=== PATIENT | female | born 1945 | race Caucasian/White ===

== ENCOUNTER → 2016-12-05 | Outpatient (CLI) | payer OTHER | LOC: FIMAGING 12:15 | PROVIDERS: ATTEND Internal Medicine | DX: Z12.31 Encounter for screening mammogram for malignant neoplasm of breast (principal) | CPT/HCPCS: G0202 ==

== ENCOUNTER → 2016-12-15 | Outpatient (CLI) | payer OTHER | LOC: FIMAGING 08:53 | PROVIDERS: ATTEND Internal Medicine | DX: R92.8 Other abnormal and inconclusive findings on diagnostic imaging of breast (principal) ==

== ENCOUNTER → 2017-06-21 | Outpatient (CLI) | payer OTHER | LOC: FIMAGING 08:43 | PROVIDERS: ATTEND Internal Medicine | DX: Z12.39 Encounter for other screening for malignant neoplasm of breast (principal); R92.8 Other abnormal and inconclusive findings on diagnostic imaging of breast | CPT/HCPCS: G0206 ==

== ENCOUNTER → 2017-12-06 | Outpatient (CLI) | payer OTHER | LOC: FIMAGING 09:36 | PROVIDERS: ATTEND Internal Medicine | DX: Z12.31 Encounter for screening mammogram for malignant neoplasm of breast (principal) ==

== ENCOUNTER 2018-09-05 12:13 | Observation (INO) | payer OTHER ==
[2018-09-05] MEDS ORDERED: NS 1,000 ML IV ONE (12:19)
[2018-09-05] MEDS ORDERED: DIAZEPAM 5 MG TAB PO ONE (12:19)
[2018-09-05] MEDS ORDERED: diphenhydrAMINE 25 MG CAP PO ONE (12:19)
[2018-09-05] MEDS ORDERED: ASPIRIN EC 325 MG TAB PO ONE ×2 (12:19→12:38)
[2018-09-05] MEDS ORDERED: FAMOTIDINE 20 MG TAB PO ONE (12:19)
[2018-09-05] MEDS ORDERED: FAMOTIDINE 20 MG/NACL 50 ML IV ONE (12:19)
[2018-09-05] MEDS ORDERED: methylPREDNISolone SOD SUCC 125 MG/2 ML VIAL IVP ONE (12:19)
[2018-09-05] MEDS ORDERED: EPINEPHrine 1 MG/10 ML SYR IVP ONE (12:37)
[2018-09-05] MEDS ORDERED: FAMOTIDINE 20 MG/NACL/50 ML BAG IV ONE (12:37)
[2018-09-05] MEDS ORDERED: methylPREDNISolone SOD SUCC 125 MG/2 ML VIAL ONE (12:37)
[2018-09-05 13:02] LABS: PLATELET COUNT 244 10^3/uL (150-400)
[2018-09-05] MEDS ORDERED: IOPAMIDOL (ISOVUE-370) 150 ML BTL IV ONE (13:06)
[2018-09-05] MEDS ORDERED: LIDOCAINE 1% 300 MG/30 ML SDV ONE (13:08)
[2018-09-05 13:10] LABS: INR 1.05 (0.83-1.16); PROTIME(PATIENT) 13.9 SEC (12.0-15.0)
[2018-09-05] MEDS ORDERED: LIDOCAINE 2% 5 ML SDV ONE (13:49)
[2018-09-05] MEDS ORDERED: PROPOFOL/EMULSION 500 MG/50 ML BOTTLE IV ONE ×2 (13:49→14:15)
[2018-09-05] MEDS ORDERED: ROCURONIUM 50 MG/5 ML VIAL ONE (13:49)
--- NOTE | 2018-09-05 14:08 | PDHPUP ---
History & Physical Update H&P update statement: This history and physical update is based on an assessment of the patient which was completed after admission or registration (within 24 hours), but prior to the surgery/procedure. nikia has progressive MR, new severe LAE, severe pulmonary htn and incessant PVC's and NSVT on ETT and on 48 holter. Hx of PCI to LAD in 2016. She has been off on anticoagualtion since last Aug H&P update: H&P reviewed & patient examined, no change in patient's condition since H&P completed
[2018-09-05] MEDS ORDERED: PROPOFOL 200 MG/20 ML VIAL ONE (14:15)
--- NOTE | 2018-09-05 15:03 | PDANEPAE ---
ANE Past Medical History - Cardiovascular History Hx Hypertension: Yes Hx Coronary Artery / Peripheral Vascular Disease: Yes Hx CHF / Valvular Disease: Yes - Pulmonary History Hx COPD: No Hx Asthma/Reactive Airway Disease: No Hx Oxygen in Use at Home: No Hx Sleep Apnea: No - Endocrine History Hx Diabetes: No - Renal History Hx Renal Disorders: No - Liver History Hx Hepatic Disorders: No - Neurological & Psychiatric Hx Hx Neurological and Psychiatric Disorders: No - Chronic Pain History Chronic Pain: No ANE Review of Systems Review of Systems: ANE Patient History - Allergies Allergies/Adverse Reactions: shellfish Allergy (Uncoded 08/29/16 06:00) - Home Medications Home Medications: Carvedilol [Coreg (*)] 25 mg PO BIDMEAL 09/03/18 [Last Taken 09/05/18] Clopidogrel Bisulfate [Plavix (*)] 75 mg PO DAILY 09/03/18 [Last Taken 09/05/18] Lansoprazole [Prevacid] 15 mg PO DAILY 09/03/18 [Last Taken 1 Day Ago ~09/04/18] - Smoking Hx Smoking Status: Never smoked ANE Labs/Vital Signs - Labs Result Diagrams: 09/05/18 12:30 09/05/18 12:30 - Vital Signs Height: 160.02 cm Weight: 64.864 kg ANE Physical Exam - Airway Neck exam: FROM Mallampati Score: Class 1 Mouth exam: normal dental/mouth exam - Pulmonary Pulmonary: no respiratory distress, no rales or rhonchi, clear to auscultation - Cardiovascular Cardiovascular: regular rate and rhythym, systolic murmur, diastolic murmur - ASA Status ASA Status: III
[2018-09-05] MEDS ORDERED: ATROPINE SULFATE 1 MG/10 ML SYR IVP PRN (16:20)
[2018-09-05] MEDS ORDERED: ONDANSETRON 4 MG/2 ML VIAL IVP PRN (16:20)
[2018-09-05] MEDS ORDERED: HYDROCODONE/APAP 5/325 TAB PO PRN (16:20)
[2018-09-05] MEDS ORDERED: NITROGLYCERIN 0.4 MG BTL SL PRN (16:20)
[2018-09-05] MEDS ORDERED: OXYCODONE/APAP 5/325 TAB PO PRN (16:20)
--- NOTE | 2018-09-05 17:01 | CPIP ---
DATE OF PROCEDURE: 09/05/2018 PROCEDURE PERFORMED: Left and right heart catheterization. INDICATION FOR PROCEDURE: Progression of valvular disease on echocardiogram with severe left atrial enlargement, severe pulmonary hypertension and moderate mitral regurgitation, moderate to severe tric uspid regurgitation. She also has a new onset of incessant ventricular ectopy with over 66,000 PVCs on 40 hour Holter monitor and increasing ventricular ectopy and runs of nonsustained ventricular tach ycardia on exercise treadmill stress test in the setting of known coronary artery disease with previo us PCI to the mid-LAD in 2016. PROCEDURE: 1. Right heart catheterization. 2. Left heart catheterization. 3. Left ventriculogram. 4. Right common femoral artery angiography. DESCRIPTION OF PROCEDURE: After informed consent was obtained for left heart catheterization as well as percutaneous coronary intervention, the patient was brought to the cardiac catheterization lab wh ere she was prepped and draped in a sterile fashion. Of note, the patient was sedated with propofol with the assistance of Anesthesia for a BRETT that was performed prior to left and right heart catheter ization. A 6-Setswana sheath was placed in the right common femoral artery using the modified Seldinger techniqu e coupled with the micropuncture technique. A 6-Setswana sheath was ultimately up sized to a 24 cm bra ided sheath in the setting of iliac vessel tortuosity. A JL 3.5 catheter was used to cannulate the l eft main. Due to difficulties cannulating the left main, assistance with cannulation was obtained wi th my colleague, Dr. Pradhan. Once the catheter was placed in left main, images were obtained in mu ltiple projections. A JL 3.5 was exchanged over a guidewire for a Russ right catheter. Russ right catheter was used to take images of the right coronary anatomy in multiple projections. Willi ams right catheter was removed over a guidewire without complications. Angled pigtail catheter was u sed to cross the aortic valve. Left ventriculogram was performed. LVEDP was assessed, aortic valve gradient was assessed. Angled pigtail catheter was removed over a wire without complications. Right heart catheterization was performed prior to left heart catheterization. The [place] cathete r was placed into the pulmonary artery. Wedge pressure was obtained. After wedge pressure was obtai lino, catheter was pulled back into the pulmonary artery. Pulmonary artery arterial site was obtained as well as pulmonary artery tracings were obtained. The catheter was then pulled back into the righ t ventricle. Right ventricular saturation was obtained. RV pressure tracing was obtained. The cath eter was then pulled back into the right atrium, right atrial oxygen saturation was obtained as well as right atrial pressure. Aortic sat was also obtained. Right heart catheterization results: Pulmonary capillary wedge pressure mean of 17. Pulmonary artery pressure 54/19 with a mean of 31, right ventricular pressure 58/1 with a mean of 12. RA pressure me an of 8 mmHg. Cardiac output 5.02 L/minute. Cardiac index 3.03 L/minute per sq m. Coronary angiography findings: Left main demonstrates normal size and caliber, bifurcates into left a nterior descending, left circumflex coronary artery. No evidence of coronary disease in the left marya n. Left anterior descending demonstrates patent stents to the mid proximal to mid LAD just distal to the 2nd diagonal branch. No flow-limiting coronary disease within the LAD or diagonal branches. Circumflex vessel demonstrates normal blood flow. No evidence of coronary disease within the circumf duane vessel. The right coronary artery is a dominant vessel. There is mild 20% stenosis in the distal RCA just pr oximal to the bifurcation of the PDA and PLV branch. HEMODYNAMICS: LVEF 45-50 percent. LVEDP fluctuates depending on PVC beats. LVEDP ranged between 23 and 41 mmHg. Aortic valve gradient: None. CONCLUSIONS: 1. No flow-limiting coronary disease. 2. Patent stent to the LAD. 3. Mildly reduced left ventricular function with LVEF of 45-50 percent with mild global hypokinesis. 4. Elevated LVEDP ranging between 23 and 41, varied in the setting of frequent PVCs. Right heart catheterization findings: Moderate pulmonary hypertension with PA pressure 54/19 and RV p ressure of 58/1 and pulmonary capillary wedge pressure 17. PLAN: 1. No indication for percutaneous coronary intervention or coronary bypass grafting based on the abo ve results. 2. BRETT did not demonstrate any indication for severe valve disease or indication for surgical interv ention on mitral, aortic, or tricuspid valve. Also aortic root measured within normal limits. Recommend consultation with Dr. Sudeep Gibson in the setting of incessant ventricular ectopy with mildly reduced ejection fraction in the setting of no evidence of flow-limiting coronary disease or severe valvular disease. /[id number]/MODL
--- NOTE | 2018-09-05 17:52 | ECHO ---
[email or web address] [address] [address] Main: [phone] Fax: Transesophageal Echocardiography Name: ALEXIS BORREGO MR#: [id number] Study Date: 09/05/2018 Study Time: 02:14 PM Date of : 1945 Age: 72 year(s) Height: ( ) Weight: ( ) BSA: Gender: Female Examination: BRETT Indication: Pre Cath Image Quality: Contrast: Requested by: Kenny Leigh Heart Rate: Rhythm: BP: / Procedure Staff Agricultural Inspector: Sammy Rascon RDCS Reading Physician: Kenny Leigh MD Requesting Provider: BRETT Exam Details Conclusions: Low normal left ventricular systolic function. The ejection fraction is visually estimated to be 50 %. The left atrium is severely dilated. Normal appearing atrial septum. The left atrial appendage is unilobular. No thrombus in left appendage. The right atrium is severely dilated. Mild mitral valve regurgitation is present. No mitral stenosis is present. Mild aortic cusp calcification is noted. Mild aortic valve regurgitation is present. No aortic valve stenosis is present. Moderate tricuspid regurgitation is present. The pulmonary artery pressure is mildly increased. Right ventricular systolic pressure measures 35mmHg. Trivial pulmonic valve regurgitation. No dilatation of the aorta. Measurements: Chambers Valvular Assessment AV/MV Valvular Assessment TV/PV Normal Normal Normal Name Value Range Name Value Range Name Value Range Visual EF: 50 % AV Vmax: 1.69 m/s (1 m/s-1.7 TR Vmax: 2.72 mm/s ( - ) m/s) TR PGmax: 30 mmHg ( - ) AV maxP mmHg ( - ) syst. PAP: 35 mmHg ( - ) Patient: ALEXIS BORREGO Study Date: 09/05/2018 Page 1 of 2 02:14 PM AV meanP mmHg ( - ) MV meanP mmHg ( - ) Additional Measurements: Valvular Assessment AV/MV Valvular Assessment TV/PV Name Value Name Value MV VTI: 16.00 cm CVP (est.): 5 mmHg Findings: Left Ventricle: Low normal left ventricular systolic function. The ejection fraction is visually estimated to be 50 %. No regional wall motion abnormality. Right Ventricle: Normal RV function. Left Atrium: The left atrium is severely dilated. Normal appearing atrial septum. Left Atrial Appendage: The left atrial appendage is unilobular. No thrombus in left appendage. Right Atrium: The right atrium is severely dilated. Mitral Valve: The mitral valve is normal in appearance. Mild mitral valve regurgitation is present. No mitral stenosis is present. Aortic Valve: The aortic valve is tri-leaflet. Mild aortic cusp calcification is noted. Mild aortic valve regurgitation is present. No aortic valve stenosis is present. Tricuspid Valve: The tricuspid valve appears normal. Moderate tricuspid regurgitation is present. The pulmonary artery pressure is mildly increased. Right ventricular systolic pressure measures 35mmHg. Pulmonic Valve: The pulmonic valve is normal in appearance and function. Trivial pulmonic valve regurgitation. Aorta: The aorta is normal. No dilatation of the aorta. Pericardium: No pericardial effusion. l1n (No Signature Object) Patient: ALEXIS BORREGO Study Date: 09/05/2018 Page 2 of 2 02:14 PM [id number]
--- NOTE | 2018-09-06 07:05 | POSTANESTH ---
Post Anesthetic Evaluation Cardiovascular Status: Normal, Stable Respiratory Status: Normal, Stable Level of Consciousness/Mental Status: Can Participate in Eval Pain Control: Adequate, Prn Tx Ordered Nausea/Vomiting Control: Adequate, Prn Tx Ordered Complications Possibly Related to Anesthesia: None Noted
[2018-09-06 07:53] VITALS: BP 120/57
--- NOTE | 2018-09-06 09:41 | CPEKG ---
Test Reason : OPEN Blood Pressure : / mmHG Vent. Rate : 095 BPM Atrial Rate : 074 BPM P-R Int : 163 ms QRS Dur : 099 ms QT Int : 382 ms P-R-T Axes : 029 011 070 degrees QTc Int : 481 ms Sinus rhythm Ventricular tachycardia, unsustained Probable left atrial enlargement Minimal ST depression, anterolateral leads Minimal ST elevation, anterior leads Confirmed by Perry Gill ([id number]) on 09/06/2018 9:41:37 AM Referred By: Confirmed By:Perry Gill
[2018-09-06] MEDS ORDERED: LISINOPRIL 10 MG TAB PO SCH (10:00)
[2018-09-06] MEDS ORDERED: CLOPIDOGREL BISULFATE 75 MG TAB PO SCH (10:00)
[2018-09-06] MEDS ORDERED: CARVEDILOL 25 MG TAB PO SCH (10:00)
[2018-09-06] MEDS ORDERED: ATORVASTATIN CALCIUM 40 MG TAB PO SCH (10:00)
--- NOTE | 2018-09-06 10:03 | ASDISCHSUM ---
Discharge Information Plan Status:Home with No Needs Medically Cleared to Leave:09/05/2018 Discharge Date:09/05/2018 CM D/C Disposition:Home, Routine, Self-Care ADT D/C Disposition:Home, Routine, Self-Care Projected Discharge Date:09/05/2018 Transportation at D/C:Family Discharge Delay Reason: Follow-Up Date:09/05/2018 Discharge Slot: Final Diagnosis: Placement Information Patient Contact Information Contact Name:MANJINDER Relationship: Address:[address] [place] Work Phone: City:[place] Alternate Phone: State/Zip Code:[place] [address] Email: Financial Information Financial Class:Medicare Advantage Plans Primary Plan Desc:[employer] MEDICARE ADV Primary Plan Number:[id number] Secondary Plan Desc: Secondary Plan Number: Assessment Information LACE LACE Length of stay for Answers: Less than 1 day current admission Acuity / Level of Answers: No Care: Did the patient have an inpatient admission? # of Emergency department Answers: 0 visits in the last 6 months Date Signed: 09/06/2018 10:02 AM Electronically Signed By:Eliana Suarez RN Intervention Information
--- NOTE | 2018-09-06 11:11 | GDS ---
ADMITTING DIAGNOSES: 1. Coronary artery disease with history of percutaneous coronary intervention of the left anterior d escending artery in 07/2016. 2. Frequent premature ventricular contractions, with noted runs of nonsustained ventricular tachycar amandeep during stress testing. 3. Hypertension. 4. Hyperlipidemia. 5. Paroxysmal atrial fibrillation. 6. Valvular heart disease (MR, AI, , TR). 7. Moderate pulmonary hypertension. DISCHARGE DIAGNOSIS: 1. Coronary artery disease with previous percutaneous coronary intervention of the left anterior anneliese cending artery. 2. Frequent premature ventricular contractions. 3. Hypertension. 4. Hyperlipidemia. 5. Rkwm-ib-ofctwkeb mitral regurgitation. 6. Mild aortic insufficiency. 7. Mild . 8. Moderate tricuspid regurgitation. 9. Moderate pulmonary hypertension. 10. Paroxysmal atrial fibrillation. PROCEDURES PERFORMED DURING HOSPITALIZATION: 1. Electrocardiogram. 2. Transesophageal echocardiogram. 3. Right and left heart catheterization. BRIEF HISTORY: Please see H and P. Briefly, the patient is a 72-year-old female. She had recently seen Dr. Leigh in office, noting to have frequent palpitations and potentially worsened murmurs. She did undergo stress testing, noting to have frequent PVCs, with noted episodes of couplets, bigeminy, and 4 and 5-beat runs of VT during testing. She had also recently underwent Holter monitoring, notin g over 66,000 in a 48-hour period. Due to this, it was recommended that she come in and undergo a TE E for evaluation of her valvular heart disease and right and left heart catheterization. HOSPITAL COURSE: Patient was admitted through CVC, prepped for procedure, and taken to the cardiac c atheterization lab. There, Dr. Leigh performed transesophageal echocardiogram, in which was noted low normal LV systolic function, with EF of 50%. LA was severely dilated and appeared unilobular. No t hrombus in the left atrial appendage. RA was severely dilated, mild MR, no MS, mild AI, no was pr esent, moderate TR, RVSP of 35 mmHg, trivial NH, no dilation of the aorta. After that, she underwent cardiac catheterization, right and left, with the findings of patent stent into the LAD, no flow-harrell iting disease, mildly reduced LV systolic function of 45% to 50%, with mild global hypokinesis. LVED P ranged between 23 and 41 mmHg, in the setting of frequent PVCs. Right heart catheterization demons trated moderate pulmonary hypertension with PA pressures of 54/19, RV pressure 58/1, and PCWP of 17 m mHg. No apparent complications. Patient was transferred back to the CVC and ultimately to PCU telem etry floor for overnight observation and hydration. Today, she reports mild tenderness at groin site , denies any chest pain or pressure. Continuous cardiac monitoring showing sinus rhythm with frequen t PVCs, no malignant arrhythmias or pauses noted. She reports no shortness of breath. She has been up and walking in the unit without difficulty. PHYSICAL EXAMINATION: GENERAL APPEARANCE: Today, short statured, mildly obese, female. S he is alert and oriented to person, place, time, and situation. Appears to be under no acute distres s. VITAL SIGNS: Current vital signs are blood pressure of 120/57, heart rate 65, sinus rhythm, resp irations 20, saturating 93% on room air, temperature 36.4 degrees Celsius. HEENT: Head is normoceph alic. Lips and tongue are pink and moist, with no signs of cyanosis. Conjunctivae pink. NECK: Tra gail is midline, +2 carotid pulses bilateral. No auscultated bruits, no jugular vein distention. RE SPIRATORY: Lungs are clear to auscultation, no rhonchi, rales or wheezes. No accessory muscle use. No intercostal muscle retraction noted. CARDIAC: Regular rate, regular rhythm, S1, S2, no S3, S4 n oted. Systolic murmur noted, 2/6, along left sternal border. ABDOMEN: Soft, nontender, bowel sound s x4 quadrants. No organomegaly. No palpable masses. SKIN: Black, warm, dry, no cyanosis, no clubb ing, no peripheral edema. VASCULAR: +2 carotids bilateral, +2 radials bilateral, +1 dorsal pedal an d posterior tibial pulses bilateral. Catheter insertion site, right groin site, with no redness, swe lling, drainage, ecchymosis, or hematoma. No auscultated bruit. LABORATORY DATA: Laboratory studies drawn today show a WBC of 11.11, hemoglobin 12.0, hematocrit 37. 2, platelet count of 238. Sodium 136, potassium 3.8, chloride 104, CO2 24, BUN 14, creatinine 0.8, gl ucose 124, calcium 9.4, magnesium 2.1. ProBNP of 6970. On admission, patient noted to have a fastin g lipid panel showing triglycerides 75, total cholesterol 134, LDL 64, HDL of 79. PROCEDURES: Transesophageal echocardiogram as mentioned above. Right and left heart catheterization as mentioned above. Electrocardiogram done on the showing sinus rhythm, with frequent PVCs, no nspecific T-wave abnormalities in multiple leads. DISCHARGE DISPOSITION: Patient will be discharged home in stable condition. She is under activity r estrictions of not lifting more than 10 pounds for the next week and no strenuous activity for the ne xt 2 weeks. DISCHARGE MEDICATIONS: Please see discharge medication reconciliation sheet. Note, patient has been resumed on all home medications, except Pradaxa, which she has been asked to resume tomorrow morning . DISCHARGE INSTRUCTIONS: Post-cardiac catheterization/BRETT discharge instructions went over with the p ronda and her , including activity restrictions, monitoring for signs of infection, bleeding precautions, and medication compliance. Patient has a followup appointment scheduled with Dr. Leigh, September 21, and she has a followup appointment with Dr. Gibson of electrophysiology for a consultation, October 11. At the time of discharge, patient and both verbalized understanding of all instr uctions. They have been told if any problems or concerns come up post discharge, they are to call eir office or return to the hospital. Total time spent on discharge greater than 30 minutes. /[id number]/MODL
== END 2018-09-06 12:00 | disposition home or self-care (01) ==
LOC: FCATH 12:13 → F2W 16:28
PROVIDERS: ADMIT Internal Medicine Cardiovascular Disease; ATTEND Internal Medicine Cardiovascular Disease
DX: I25.10 Atherosclerotic heart disease of native coronary artery without angina pectoris (principal); I10 Essential (primary) hypertension; E78.5 Hyperlipidemia, unspecified; I48.0 Paroxysmal atrial fibrillation; I08.3 Combined rheumatic disorders of mitral, aortic and tricuspid valves; I27.20 Pulmonary hypertension, unspecified; Z95.5 Presence of coronary angioplasty implant and graft
CPT/HCPCS: 93005; 93312; 93460; C1760; G0378; J1200; J1644; J2704; J2930; Q9967

== ENCOUNTER 2018-09-06 22:46 | Inpatient (IN) | payer OTHER ==
--- NOTE | 2018-09-06 23:54 | EDPHY ---
H & P Stated Complaint: R groin/thigh swelling from cath procedure today, Time Seen by Provider: 09/06/18 23:12 HPI/ROS: Chief Complaint: Right groin swelling HPI: 72-year-old woman who was 1 days status post cardiac catheterization by Dr. Leigh. Patient was discharged this morning. Approximately 1 hr ago she noticed rapid dramatic swelling in her right groin catheterization site. She contacted the cardiology office was told to come in for further evaluation. Denies any lightheadedness or fainting. Is complaining of pain in her groin. Is able to ambulate. No chest pain or shortness of breath. She is not on any blood thinning medications the last week. ROS: 10 systems were reviewed and were negative except those elements noted in the HPI. PMH: Coronary artery disease Social History: No smoking, no alcohol, no recreational drug use Family History: non-contributory Physical Exam: Gen: Awake, Alert, No Distress HEENT: Nose: no rhinorrhea Eyes: PERRLA, EOMI Mouth: Moist mucosa Neck: Supple, no JVD Chest: nontender, lungs clear to auscultation Heart: S1, S2 normal, no murmur Abd: Soft, non-tender, no guarding Right inguinal region. Patient has a large hematoma inferior to her catheterization site, approximately 20 x 10 cm. Is tender to touch. There is over ecchymosis. No erythema. Ext: no edema, non-tender Skin: no rash Neuro: CN II-XII intact, Sensation grossly intact, Strength 5/5 in bilateral upper and lower extremities - Personal History Current Tetanus Diphtheria and Acellular Pertussis (TDAP): Yes - Medical/Surgical History Hx Asthma: No Hx Chronic Respiratory Disease: No Hx Diabetes: No Hx Cardiac Disease: Yes Hx Renal Disease: No Hx Cirrhosis: No Hx Alcoholism: No Hx HIV/AIDS: No Hx Splenectomy or Spleen Trauma: No Other PMH: HTN, AFIB, hyperlipidemia, gerd, cardiac stent, c section, appendectomy, ortho hand surg, - Social History Smoking Status: Never smoked Constitutional: Initial Vital Signs Temperature (C) 36.4 C 09/06/18 22:48 Heart Rate 63 09/06/18 22:48 Respiratory Rate 18 09/06/18 22:48 Blood Pressure 179/71 H 09/06/18 22:48 O2 Sat (%) 97 09/06/18 22:48 Allergies/Adverse Reactions: shellfish Allergy (Uncoded 08/29/16 06:00) Home Medications: Medication Instructions Recorded Atorvastatin Calcium [Lipitor 40 40 mg PO DAILY #0 tab 08/04/16 mg (*)] Dabigatran Etexilate Mesyl 150 mg PO BID #60 cap 08/04/16 [Pradaxa 150 MG (*)] Lisinopril [Zestril 10 mg (*)] 10 mg PO DAILY #0 tab 08/04/16 Carvedilol [Coreg (*)] 25 mg PO BIDMEAL 09/03/18 Clopidogrel Bisulfate [Plavix (*)] 75 mg PO DAILY 09/03/18 Lansoprazole [Prevacid] 15 mg PO DAILY 09/03/18 Medical Decision Making - Diagnostics Imaging Results: Imaging Impressions Pseudoaneurysm Repair US 09/06/18 23:26 Impression: Large right common femoral artery pseudoaneurysm and surrounding hematoma. Short, wide neck measuring up to 1.7 cm in diameter makes ultrasound guided thrombin injection high risk for reflux and distal embolization in the right lower extremity. Surgical consultation is recommended. These findings were discussed with Dr. Pola Denis and in person at 12:20 AM on 09/07/2018 ED Course/Re-evaluation: Patient has a large pseudoaneurysm in her right groin. Discussed with Dr. Pace, interventional Radiology. He states that the size of the pseudoaneurysm is contraindication for thrombin injection. I have discussed with Dr. Pradhan, cardiology. He is requesting admission to the hospitalist service. I discussed with the hospitalist. Will admit to her service. They are requesting general surgery consultation given the patient's drop in her hemoglobin and hematocrit. Patient is hemodynamically appropriate. I have discussed with Dr. Hooker. He he will consult on the patient in the ER. - Data Points Laboratory Results: Laboratory Results 09/06/18 23:30 09/06/18 23:30 09/06/18 09/06/18 23:30 23:30 WBC 13.79 10^3/uL H 10^3/uL (3.80-9.50) RBC 3.40 10^6/uL L 10^6/uL (4.18-5.33) Hgb 9.7 g/dL L g/dL (12.6-16.3) Hct 29.2 % L % (38.0-47.0) MCV 85.9 fL fL (81.5-99.8) MCH 28.5 pg pg (27.9-34.1) MCHC 33.2 g/dL g/dL (32.4-36.7) RDW 14.1 % % (11.5-15.2) Plt Count 222 10^3/uL 10^3/uL (150-400) MPV 10.6 fL fL (8.7-11.7) Neut % (Auto) 80.0 % H % (39.3-74.2) Lymph % (Auto) 13.6 % L % (15.0-45.0) [place] % (Auto) 5.7 % % (4.5-13.0) Eos % (Auto) 0.2 % L % (0.6-7.6) Baso % (Auto) 0.2 % L % (0.3-1.7) Nucleat RBC Rel Count 0.0 % % (0.0-0.2) Absolute Neuts (auto) 11.03 10^3/uL H 10^3/uL (1.70-6.50) Absolute Lymphs (auto) 1.87 10^3/uL 10^3/uL (1.00-3.00) Absolute Monos (auto) 0.79 10^3/uL 10^3/uL (0.30-0.80) Absolute Eos (auto) 0.03 10^3/uL 10^3/uL (0.03-0.40) Absolute Basos (auto) 0.03 10^3/uL 10^3/uL (0.02-0.10) Absolute Nucleated RBC 0.00 10^3/uL 10^3/uL (0-0.01) Immature Gran % 0.3 % % (0.0-1.1) Immature Gran # 0.04 10^3/uL 10^3/uL (0.00-0.10) Sodium 130 mEq/L L mEq/L (135-145) Potassium 3.9 mEq/L mEq/L (3.5-5.2) Chloride 100 mEq/L mEq/L (97-110) Carbon Dioxide 21 mEq/l L mEq/l (22-31) Anion Gap 9 mEq/L mEq/L (6-14) BUN 23 mg/dL mg/dL (7-23) Creatinine 0.8 mg/dL mg/dL (0.6-1.0) Estimated GFR > 60 Glucose 129 mg/dL H mg/dL (70-100) Calcium 8.5 mg/dL mg/dL (8.5-10.4) Medications Given: Acetaminophen (Tylenol) 650 mg PO Q4HRS PRN PRN Reason: Pain, Mild/Fever, Can Take PO Stop: 03/06/19 01:31 Last Admin: 09/07/18 06:14 Dose: 650 mg Sodium Chloride (Ns) 1,000 mls @ 50 mls/hr IV CONT PITA Stop: 03/06/19 01:44 Last Admin: 09/07/18 02:09 Dose: 1,000 mls Departure - Departure
[2018-09-07 00:03] LABS: PLATELET COUNT 222 10^3/uL (150-400)
[2018-09-07] MEDS ORDERED: ONDANSETRON DISINTEGRATING 4 MG TAB PO PRN (01:32)
[2018-09-07] MEDS: ACETAMINOPHEN 325 MG TAB PO PRN ×2 (02:09→06:14)
[2018-09-07] MEDS: NS 1,000 ML IV SCH ×2 (02:09→14:13)
--- NOTE | 2018-09-07 02:17 | CPEKG ---
Test Reason : OPEN Blood Pressure : / mmHG Vent. Rate : 090 BPM Atrial Rate : 034 BPM P-R Int : 170 ms QRS Dur : 093 ms QT Int : 359 ms P-R-T Axes : 051 029 157 degrees QTc Int : 440 ms Sinus rhythm Ventricular bigeminy Probable left atrial enlargement Abnormal T, consider ischemia, diffuse leads Confirmed by Pola Denis ([id number]) on 09/07/2018 2:16:49 AM Referred By: Confirmed By:Pola Denis
--- NOTE | 2018-09-07 03:20 | GHP ---
DATE OF ADMISSION: 09/07/2018 PRIMARY NECKTIES PAINTER: Kenny Leigh MD. SOURCE: Patient provides history, appears reliable. EMR was reviewed and case discussed with ED provider, cardiology and surgical services. CHIEF COMPLAINT: Right groin pain and swelling, status post cath. HISTORY OF PRESENT ILLNESS: This is a very pleasant 72-year-old female with past medical history significant for coronary artery disease status post stenting to LAD in 2016, systolic CHF, severe mitral regurgitation, severe pulmonary hypertension, biatrial enlargement, severe paroxysmal atrial fibrillation, history of recurrent PVCs, NSVT, GERD, HTN, HLD, who underwent left and right heart catheterization on 09/05/2018 for progressive valvular disease and severe left atrial enlargement, pulmonary hypertension, moderate MR and moderate to severe tricuspid regurgitation. Patient has also been experiencing increasing episodes of PVCs noted in records of 66,000 PVCs on a 48 -hour Holter monitor. Findings did not identify any flow-limiting coronary disease with a patent stent in the LAD, mildly reduced LVEF of 45% and 50% with mild global hypokinesis and findings of moderate pulmonary hypertension. The patient's postoperative course was unremarkable. She was discharged in the morning on 09/06/2018. One hour before presenting to the emergency department, she noted increasing swelling and pain in her right groin. Patient denies any numbness or tingling or radicular symptoms going down into her leg. She denies any chest pain, palpitations, shortness of breath or lightheadedness. The patient called the cardiology office and was advised to go to the emergency department for further evaluation. The patient reports that she continues to have some discomfort in her right groin. REVIEW OF SYSTEMS: 10 systems reviewed and negative except as noted above. ALLERGIES: Shellfish and codeine. Patient reports she tolerates other narcotics. HOME MEDICATIONS: As per EMR, lisinopril 10 mg p.o. daily, Prevacid 15 mg p.o. daily, Pradaxa 150 mg p.o. b.i.d., Plavix 75 mg p.o. daily, Coreg 25 mg p.o. b.i.d. with meals, atorvastatin 40 mg p.o. daily. PAST MEDICAL HISTORY: Significant for: 1. Paroxysmal atrial fibrillation on chronic anticoagulation with Pradaxa. The patient had this medication held prior to her procedure, has not taken any dosing this evening. 2. Mild systolic CHF with an estimated EF of 45% to 50% with mild global hypokinesis, valvular heart disease, severe MR, severe pulmonary hypertension, severe biatrial enlargement and a history of NSVT and recorded 66,000 episodes of PVCs on 48 hours of Holter, bigeminy, trigeminy pattern. 3. GERD. 4. HTN. 5. HLD. PAST SURGICAL HISTORY: Significant for cardiac cath 2016, stenting to LAD, repeated catheterization 08/06/2018, as noted per HPI, , appendectomy, hand surgery. FAMILY HISTORY: Significant for father with CAD, CVA, emphysema. Mother, hypertension, CHF. Brother with mitral valve disease, [place], CAD. Sister, history of CVA and requirement for permanent pacemaker. Another sister with history of cancer. SOCIAL HISTORY: Patient is , lives with her , Perry. She does not smoke, drink, or utilize any drugs. CODE STATUS: Full. PHYSICAL EXAMINATION: VITAL SIGNS: Upon arrival to the emergency department, blood pressure 179/71, heart rate 63, respiratory rate 18, O2 saturation 97% on room air, temperature 36.4. Current vitals available: Blood pressure 149/69, heart rate 36 with noted bigeminy, respiratory rate 14, O2 saturation 96% on room air. GENERAL: No acute distress. Very pleasant, elderly female without is lying quietly in bed. at bedside. HEAD: Normocephalic atraumatic. EYES: Extraocular muscles grossly intact. Pupils equal, round, slightly decreased reactivity to light bilaterally, but symmetric. No scleral icterus, conjunctival injection. ENT: Mucous membranes appear moist. No oropharyngeal erythema or exudates noted. NECK: Supple. Trachea midline. CV: Bradycardic with occasional irregular beat. Slightly distant heart sounds. A 3/6 systolic murmur. No chest wall tenderness to palpation. RESPIRATORY: Unlabored breathing. Lungs are clear to auscultation bilaterally. No wheezes, rales, rhonchi. EXTREMITIES: No cyanosis, clubbing, edema appreciated. 2+ pedal pulses present and symmetric. ABDOMEN: Positive bowel sounds. Soft, nontender to palpation. No rebound, guarding, or masses appreciated. : No suprapubic tenderness to palpation. No Lopez catheter in place. Patient's right groin with large hematoma extending superiorly and inferiorly down the right leg. Patient with tenderness to palpation in all these areas. There is no active bleeding from the wound site. No erythema or induration. NEURO: Grossly nonfocal. Exam limited due to patient being on bedrest with over the groin site. She is able to move all her distal extremities. PSYCH: Thought process, content and questions are all appropriate. Patient is pleasant and cooperative. LABORATORY STUDIES: WBC is 13.79, H and H are 9.7 and 29.2, platelet count is 222, neutrophil percent 80%, MCV 85.9. Patient's discharging H and H earlier in the morning were 12.0 and 37.2. Sodium is 130, potassium 3.9, chloride is 100, CO2 is 21, anion gap 9, BUN is 23 , creatinine 0.8, GFR greater than 60, glucose is 129, calcium 8.5. EKG reviewed by me shows sinus bradycardia with bigeminy, LAE. No acute ST elevations or depressions. QTc 440. Pseudoaneurysm ultrasound showing large right common femoral artery pseudoaneurysm and surrounding hematoma. Short wide neck measuring 1.7 cm in diameter. ASSESSMENT AND PLAN: A pleasant 72-year-old female postop day #2 status post right and left heart catheterization who now presents with sudden onset of right groin pain and swelling. 1. Pseudoaneurysm measuring 1.7 cm. Case was discussed with Radiology, noting that this would be a high risk procedure for ultrasound guided thrombin injection with recommendations to discuss with Surgery who evaluated the patient in the emergency department. Will further discuss for vascular intervention tomorrow. Patient will be made n.p.o. 2. Acute blood loss anemia in setting of hematoma, pseudoaneurysm. Will monitor H and H. Patient's vital signs at this time are acceptable. Type and screen have been ordered. 3. Right groin pain. At this time, patient reports that she is fairly comfortable. She is amenable to some Tylenol. Would like to avoid narcotics as possible, but has been able to tolerate hydrocodone in the past. She does report she is intolerant of codeine. 4. Hyponatremia, likely in setting of hypovolemia with acute bleed. IV fluids for some gentle hydration at slow rate given patient's history of valvular heart disease and mild CHF. 5. Leukocytosis likely related to patient's acute blood loss and acute illness. She is afebrile. Denies any fevers or chills. No evidence of surrounding cellulitis. Will plan to repeat CBC in the morning. 6. Hyperglycemia, mildly elevated, nonfasting lab. No history of diabetes. Continue monitor. 7. Chronic medical issues. 8. Paroxysmal atrial fibrillation. Patient currently in sinus rhythm with bigeminy. She is on Coreg, currently bradycardic. Ventricular rate in the 40s to 50s. Patient is n.p.o. preoperatively. 9. Mild systolic congestive heart failure, ejection fraction estimated 45% to 50% on recent catheterization. Patient does not appear decompensated. Gentle IV fluid hydration as noted above. Monitoring closely. 10. Valvular heart disease without decompensation. Fluids as noted above. 11. Benign essential hypertension. Blood pressure is acceptable at this time. 12. Hyperlipidemia. Resume statins when diet is advanced. 13. Gastroesophageal reflux disease, currently asymptomatic. Resume her PPI when stable. 14. Chronic anticoagulation. Patient has been holding off on her Pradaxa preoperatively. Continue to hold, anticipating surgical intervention. 15. Fluid, electrolyte, nutrition. IV fluids normal saline as noted above. Electrolyte monitoring replacement if needed. The patient is n.p.o. status. 16. Prophylaxis. SCDs. Holding anticoagulation as noted above. 17. COR status: Full. 18. Disposition: Patient admitted to inpatient status on PCU floor for close cardiac monitoring pending surgical evaluation for repair. /[id number]/MODL MTDD
[2018-09-07 06:25] LABS: PLATELET COUNT 195 10^3/uL (150-400)
--- NOTE | 2018-09-07 06:45 | GCON ---
DATE OF CONSULTATION: 09/07/2018 CHIEF COMPLAINT: Right groin pain. HISTORY OF PRESENT ILLNESS: This is a 72-year-old female who underwent cardiac cath on September 05. Cath was uneventful. She was subsequently discharged home after a 1 night hospital stay. She prese nted to the emergency department earlier today complaining of increased right growing swelling and pa in. Other than that, she has no cardiac complaints. Denies fevers or chills. States that her leg i s still warm and she is able to walk. Per her report, the hematoma has been stable since its 1st amisha earance, but there is some tenderness there. PAST MEDICAL HISTORY: Paroxysmal AFib on Pradaxa, mild systolic congestive heart failure, GERD, hype rtension, and hyperlipidemia. PAST SURGICAL HISTORY: She has had multiple cardiac caths. She does have a stent from 2016. No new stents were performed this most recent cath. She has had a , appendectomy and hand surgery . FAMILY HISTORY: Significant for coronary artery disease. SOCIAL HISTORY: She is . Her is at bedside. She denies any illicit drug use. CURRENT MEDICATIONS: Reviewed. ALLERGIES: Shellfish. PHYSICAL EXAMINATION: VITAL SIGNS: Temperature is 37, blood pressure is 135/94, heart rate 65 and s he is 94% on room air. CONSTITUTIONAL: She is comfortable, in no acute distress. EYES: Her pupils are equal, round, and reactive to light and accommodation. She has anicteric sclerae. Her extraocu lar movements are intact. EARS, NOSE, MOUTH, THROAT: She has moist mucous membranes. Her hearing i s normal. She has normal dentition. CARDIOVASCULAR: She is currently in a regular rhythm without a ny murmurs. RESPIRATORY: She has no respiratory distress, rales or rhonchi. She is otherwise clear to auscultation. GI: Her abdomen is soft, nondistended, nontender. Her right groin has some ecchy anil which is tender. It is nonpulsatile. Stick site is clean. MUSCULOSKELETAL: Again, full stre ngth in the bilateral lower extremities. Distal DP and PT are both palpable bilaterally. NEUROLOGIC : She is alert and oriented x3. Her cranial nerves 2-12 are intact. She has no weakness, no numbne ss. PSYCH: She is interacting appropriately. She is not anxious or encephalopathic. LYMPH/HEME/IM MUNOLOGIC: She has no cervical, groin or supraclavicular lymphadenopathy. LABS: Leukocytosis to 13,000 with a left shift. H and H 9.7 and 29.2, platelets 222. Chemistry is remarkable for a low sodium at 130, a low CO2 at 21 and an elevated glucose at 129. IMAGING: Includes an ultrasound of the right groin, which shows a pseudoaneurysm with a short fat ne ck. ASSESSMENT/PLAN: 72-year-old female with right groin pseudoaneurysm of the common femoral artery, st atus post cardiac cath. She is currently hemodynamically stable. Hematoma is not rapidly expanding or pulsatile and the distal neurovascular exam on her right lower extremity is stable. She did have consultation from IR. They felt given the fact that her neck was short and fat that thi s precluded thrombin injection. Given the size of the pseudoaneurysm itself, she will likely need op en surgical repair. We will discuss planning of this in the a.m. /[id number]/MODL
[2018-09-07] MEDS ORDERED: ceFAZolin 2 GM/DEXTROSE 100 ML IV ONE (07:56)
--- NOTE | 2018-09-07 09:13 | POSTANESTH ---
Post Anesthetic Evaluation Cardiovascular Status: Normal, Stable Respiratory Status: Normal, Stable Level of Consciousness/Mental Status: Can Participate in Eval, Mildly Sleepy, Arousable Pain Control: Adequate, Prn Tx Ordered Nausea/Vomiting Control: Adequate, Prn Tx Ordered Complications Possibly Related to Anesthesia: None Noted
--- NOTE | 2018-09-07 09:15 | PDANEPAE ---
ANE History of Present Illness 72 yo female with R groin pseudoaneurysm after heart cath two days ago. ANE Past Medical History - Cardiovascular History Hx Hypertension: Yes Hx Arrhythmias: Yes Hx Chest Pain: No Hx Coronary Artery / Peripheral Vascular Disease: Yes Hx CHF / Valvular Disease: Yes Hx Palpitations: No Cardiovascular History Comment: mild global hypokinesis (EF 45%), mod pulm HTN, mild MR, mod TR. CAD s/p stent, h/o PAF - in bigemini this admission - Pulmonary History Hx COPD: No Hx Asthma/Reactive Airway Disease: No Hx Recent Upper Respiratory Infection: No Hx Oxygen in Use at Home: No Hx Sleep Apnea: No - Endocrine History Hx Diabetes: No Hypothyroid: No Hyperthyroid: No Obesity: no - Renal History Hx Renal Disorders: No - Liver History Hx Hepatic Disorders: No - Neurological & Psychiatric Hx Hx Neurological and Psychiatric Disorders: No - GI History GERD: moderate Hx Gastrointestinal Disorders: Yes - Chronic Pain History Chronic Pain: No ANE Review of Systems Review of Systems: - Systems Constitutional: Reports: no symptoms Muscolosketal: Reports: other (R groin swelling and pain from hematoma) ANE Patient History - Allergies Allergies/Adverse Reactions: shellfish Allergy (Uncoded 08/29/16 06:00) - Home Medications Home Medications: Carvedilol [Coreg (*)] 25 mg PO BIDMEAL 09/03/18 [Last Taken 09/05/18] Clopidogrel Bisulfate [Plavix (*)] 75 mg PO DAILY 09/03/18 [Last Taken 09/05/18] Lansoprazole [Prevacid] 15 mg PO DAILY 09/03/18 [Last Taken 1 Day Ago ~09/04/18] - NPO status NPO Since - Liquids (Date): 09/07/18 NPO Since - Liquids (Time): 05:00 NPO Since - Solids (Date): 09/06/18 NPO Since - Solids (Time): 22:00 - Anes Hx Anes Hx: no prior problems - Smoking Hx Smoking Status: Never smoked - Family Anes Hx Family Anes Hx: neg - N/A ANE Labs/Vital Signs - Labs Result Diagrams: 09/07/18 06:10 09/07/18 06:10 - Vital Signs Blood Pressure: 108/66 Heart Rate: 69 Respiratory Rate: 20 O2 Sat (%): 97 Height: 160.02 cm Weight: 64 kg ANE Physical Exam - Airway Neck exam: FROM, short neck (short TMD with prominent upper teeth) Mallampati Score: Class 2 Mouth exam: normal dental/mouth exam - Pulmonary Pulmonary: clear to auscultation - Cardiovascular Cardiovascular: systolic murmur, other (fixed split S2) - ASA Status ASA Status: III ANE Anesthesia Plan Anesthesia Plan: general endotracheal anesthesia Lines/Monitors: arterial line, additional IV
[2018-09-07] MEDS ORDERED: LR 1,000 ML IV ONE (09:27)
[2018-09-07] MEDS ORDERED: PROTAMINE SULFATE 50 MG/5 ML VIAL IVP ONE (09:41)
[2018-09-07] MEDS ORDERED: THROMBIN (BOVINE) 5,000 UNIT VIAL TP ONE (09:41)
[2018-09-07] MEDS ORDERED: THROMBIN (BOVINE) 20,000 UNIT SPRAY TP ONE (09:42)
[2018-09-07] MEDS ORDERED: BUPIVACAINE 0.5% 30 ML SDV ONE (09:42)
[2018-09-07] MEDS ORDERED: MIDAZOLAM 2 MG/2 ML VIAL IVP ONE (09:42)
[2018-09-07] MEDS: ONDANSETRON 4 MG/2 ML VIAL IVP PRN (09:42)
[2018-09-07] MEDS ORDERED: ROCURONIUM 50 MG/5 ML VIAL ONE (09:51)
[2018-09-07] MEDS ORDERED: fentaNYL 100 MCG/2 ML INJ ONE ×2 (09:51→12:16)
[2018-09-07] MEDS ORDERED: ROCURONIUM 100 MG/10 ML VIAL ONE (09:51)
[2018-09-07] MEDS ORDERED: PROPOFOL 200 MG/20 ML VIAL ONE (09:51)
--- NOTE | 2018-09-07 10:00 | SOAPPROG ---
SOGYPSY Progress Note Assessment/Plan: Assessment: 72-YEAR-OLD FEMALE WITH A HEART RECENT HEART CATHETERIZATION FOR RUNS OF PVCS AND V-TACH. HEART CATH WAS UNREVEALING BUT SHE HAS NOW DEVELOPED A RIGHT GROIN PSEUDOANEURYSM WHICH IS EXPANDING AND NOT A MINIMAL TO IR INJECTION. RISKS AND OPTIONS FULLY DISCUSSED CHEST CLEAR COR REGULAR RHYTHM, VITAL SIGNS STABLE ABDOMEN SOFT NONTENDER EXTREMITIES FULL PULSES PULSATILE HEMATOMA IN THE RIGHT GROIN Plan: OR CORRECTION OF PSEUDOANEURYSM RUPERTO 09/07/18 09:58 Objective: Vital Signs Temp Pulse Resp BP Pulse Ox 36.9 C 69 20 108/66 97 09/07/18 09:23 09/07/18 09:41 09/07/18 09:41 09/07/18 09:41 09/07/18 09:41 Laboratory Results 09/07/18 06:10 09/07/18 06:10 09/06/18 09/07/18 09/08/18 05:59 05:59 05:59 Intake Total 1000 Balance 1000 ICD10 Worksheet Patient Problems: Problems Problem Status Onset 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 - ICD10 Problem Qualifiers (1) Femoral artery pseudoaneurysm complicating cardiac catheterization
[2018-09-07] MEDS ORDERED: HEPARIN 10,000 UNIT/10 ML MDV (1,000 UNIT/ML) ONE (10:01)
[2018-09-07] MEDS ORDERED: NEOSTIGMINE METHYLSULFATE 5 MG/5 ML SYR ONE (11:29)
[2018-09-07] MEDS ORDERED: GLYCOPYRROLATE 0.2 MG/1 ML VIAL ONE ×2 (11:29→11:30)
[2018-09-07] MEDS ORDERED: ONDANSETRON 4 MG/2 ML VIAL ONE (11:31)
[2018-09-07] MEDS ORDERED: LR 500 ML IV PRN ×2 (11:33→12:38)
[2018-09-07] MEDS ORDERED: NALOXONE HCL 0.4 MG/ML INJ IVP PRN ×2 (11:33→12:38)
[2018-09-07] MEDS ORDERED: HYDROCODONE/APAP 5/325 TAB PO PRN (11:33)
[2018-09-07] MEDS ORDERED: ALBUTEROL 3 ML DEYVIAL IH PRN ×2 (11:33→12:38)
[2018-09-07] MEDS ORDERED: PROMETHAZINE HCL 25 MG/ML INJ IVP PRN ×3 (11:33→14:55)
[2018-09-07] MEDS ORDERED: HYDROmorphONE/DILAUDID 1 MG/ML INJ IVP PRN ×2 (11:49→16:11)
[2018-09-07] MEDS ORDERED: HYDROmorphONE/DILAUDID 2 MG TAB PO PRN (11:49)
--- NOTE | 2018-09-07 11:57 | POSTOPPROG ---
Post Op Note Date of Operation: 09/07/18 Surgeon: Tello Klein Education And Development Manager: arcelia Hager Anesthesiologist: Jania Anesthesia: GET(General Endotracheal) Pre-op Diagnosis: psuedoaneurysm, bleeding s/p heart cath Post-op Diagnosis: same Indication: bleeding Procedure: open repair of femoral artery Inf/Abcess present in the surg proc area at time of surgery?: No Depth: Deep Incisional (Fascial) EBL: 50-100
[2018-09-07] MEDS: fentaNYL 100 MCG/2 ML INJ IVP PRN ×2 (12:17→12:29)
[2018-09-07] MEDS ORDERED: HYDROmorphONE/DILAUDID 2 MG/ML INJ ONE (12:26)
[2018-09-07] MEDS ORDERED: fentaNYL 100 MCG/2 ML INJ IVP PRN (12:38)
[2018-09-07] MEDS ORDERED: oxyCODONE IR 5 MG TAB PO PRN (12:38)
[2018-09-07] MEDS ORDERED: ENALAPRILAT DIHYDRATE 1.25 MG/ML VIAL IVP PRN (12:38)
[2018-09-07] MEDS ORDERED: HYDROmorphONE/DILAUDID 2 MG/ML INJ IVP ONE (13:00)
--- NOTE | 2018-09-07 14:04 | PDMN ---
Medical Necessity Medical necessity: Pt meets inpt criteria per MD order and Cardiovascular surgery or procedure GRG, Direct repair of aneurysm, pseudoaneurysm, commom femoral artery, Medicare inpt only list. 72 y/o, POD#2 s/p R and L heart cath presenting w/R groin pain and swelling, admitted w/1.7 cm pseudoaneurysm and acute blood loss anemia in setting of hematoma and pseudoaneurysm, surg consult - pt underwent open repair of femoral artery. Also, of note hyponatremia (Na 127 today), H&H (8.8, 26.8 today).
--- NOTE | 2018-09-07 15:29 | PDCARPN ---
Cardiology Progress Note Chief Complaint: Right groin pain, evidence Assessment/Plan: Assessment: -pseudoaneurysm repair -incessant PVCs -LVEF 45-50% -paroxysmal atrial fibrillation -coronary disease with history of PCI to the LAD. No flow-limiting coronary disease on left heart catheterization 09/05/2018 -moderate pulmonary hypertension -moderate mitral regurgitation. -mild aortic stenosis Plan: -will continue to follow along with her care -will restart Plavix and Pradaxa 1 bleeding risk stable from surgical perspective. Patient is scheduled to be seen by Dr. Gibson for evaluation of incessant ventricular ectopy on 10/11/2018 Patient is scheduled to follow up with me on Monday09/21/2018 09/07/18 15:29 Subjective: Jerri is a pleasant 72-year-old female who underwent transesophageal echocardiogram followed by left and right heart catheterization on Monday02/28/2018 in the setting of echocardiogram demonstrating moderate to severe mitral regurgitation with left atrial enlargement and increasing pulmonary hypertension. She also has a known history of coronary disease with previous PCI to the LAD and history of paroxysmal atrial fibrillation. She had undergone an exercise treadmill stress test to assess for possible symptomatic mitral valve disease. Stress test demonstrated incessant PVCs with increasing ventricular ectopy with runs of bigeminy, trigeminy nonsustained ventricular tachycardia which ultimately terminated the study. This led to plan for left and right heart catheterization coupled with BRETT. T demonstrated moderate mitral regurgitation, moderate pulmonary hypertension, moderate aortic insufficiency. Valvular disease was not significant to require surgery. Left heart catheterization demonstrated patent stent to the LAD and no significant flow-limiting coronary disease right heart catheterization demonstrated moderate pulmonary hypertension. Left heart catheterization performed performed through right common femoral artery. There is tortuosity iliac vessel. Sheath was upsized to a 6 Hungarian 24 cm braided sheath. Right common femoral artery angiography postprocedure demonstrated no evidence of trauma. She is discharged home the following morning without complication and without complaint. She was not scheduled to restart Pradaxa until today. She presented last evening with increasing right groin pain and hematoma formation. She is found have pseudoaneurysm and underwent surgical repair with Dr. JUDY Klein earlier today. Reviewed/Discussed With: family, multidisciplinary team Objective: Vital Signs (8 Hrs) Temp Pulse Resp BP Pulse Ox 09/07/18 13:01 0 L 151/65 H 97 09/07/18 12:47 2 L 149/100 H 96 09/07/18 12:41 36.6 C 8 L 144/75 H 97 09/07/18 12:37 8 L 142/90 H 97 09/07/18 12:32 15 169/86 H 96 09/07/18 12:26 7 L 152/97 H 09/07/18 12:21 8 L 153/72 H 09/07/18 12:16 11 L 161/66 H 09/07/18 12:12 0 L 161/70 H 09/07/18 12:07 12 158/67 H 09/07/18 12:01 6 L 146/70 H 98 09/07/18 11:56 16 135/76 H 98 09/07/18 11:51 5 L 120/52 L 99 09/07/18 11:50 36.6 C 3 L 121/54 H 99 09/07/18 11:48 36.6 C 98 09/07/18 09:41 69 20 108/66 97 09/07/18 09:23 36.9 C 69 18 109/65 09/07/18 07:53 60 16 108/66 97 09/07/18 07:51 69 20 108/66 97 Intake/Output (24 Hrs) 09/06/18 09/07/18 09/08/18 05:59 05:59 05:59 Intake Total 1660 Output Total 50 Balance 1610 Intake: Oral (ml) 10 IV Intake (ml) 650 IV Infused (ml) 1000 Output: Estimated Blood Loss (ml) 50 Other: Weight 64 kg Number of Voids 2 Result Diagrams: 09/07/18 06:10 09/07/18 06:10 - Physical Exam Constitutional: other (Patient asleep.) ICD10 Worksheet Patient Problems: Problems Problem Status Onset 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
--- NOTE | 2018-09-07 16:31 | HOSPPROG ---
Hospitalist Progress Note Assessment/Plan: #Pseudoaneurysm: s/p repair by Dr. Klein -schedule APAP, PRN low-dose oxycodone #Ventricular ectopy: Dr. Gibson to eval September. Ensure lytes at goal #PAF: Coreg. Restart AC when ok by surgery #Normocytic anemia: repeat in morning #CAD: prior PAD PCI. No flow-limiting CAD on cath #Moderate pulm HTN #Mild : FU outpatient Cards #Mild toxic encephalopathy: due to antiemetics #Diet: regular #DVT ppx: SCD #Disp: cont inpatient admission for post-surgical care, telemetry Subjective: somnolent after anesthesia, antiemetics Objective: Vital Signs Temp Pulse Resp BP Pulse Ox 36.8 C 66 16 157/83 H 97 09/07/18 13:30 09/07/18 15:00 09/07/18 15:00 09/07/18 15:00 09/07/18 13:01 Laboratory Results 09/07/18 06:10 09/07/18 06:10 09/06/18 09/07/18 09/08/18 05:59 05:59 05:59 Intake Total 1660 Output Total 50 Balance 1610 - Time Spent With Patient Time Spent with Patient: greater than 35 minutes Time Spent with Patient: Greater than 35 minutes spent on this patients care, greater than 50% of time spent counseling, educating, and coordinating care regarding the above mentioned plan. - Physical Exam Constitutional: other (somnolent) Eyes: PERRL Cardiovascular: regular rate and rhythym, other (PVC) Respiratory: no respiratory distress Gastrointestinal: normoactive bowel sounds Musculoskeletal: other (right groin surgical site dressed, CDI) Neurologic: other (not participating in exam due to somnolence from meds) Psychiatric: encephalopathic (2/2 meds) ICD10 Worksheet Patient Problems: Problems Problem Status Onset 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
--- NOTE | 2018-09-07 16:40 | ASMTCMCOM ---
CM Note CM Note Notes: CM reviewed pt's chart for d/c planning. Pt is postop day #2 status post right and left heart catheterization who now presents wit sudden onset of right groin pain and swelling. Pt is retired and lives with her , bell, #[phone]. There are no orders yet for OT/PT evals. CM will follow. D/C plan: TBD Date Signed: 09/07/2018 04:40 PM Electronically Signed By:oCllette Horowitz
[2018-09-07] MEDS: CARVEDILOL 25 MG TAB PO SCH (16:58)
[2018-09-07] MEDS: PANTOPRAZOLE SODIUM 40 MG TAB PO SCH (16:58)
--- NOTE | 2018-09-07 19:17 | SOAPPROG ---
SOGYPSY Progress Note Assessment/Plan: Assessment: 72-YEAR-OLD FEMALE WITH A HEART RECENT HEART CATHETERIZATION FOR RUNS OF PVCS AND V-TACH. HEART CATH WAS UNREVEALING BUT SHE HAS NOW DEVELOPED A RIGHT GROIN PSEUDOANEURYSM WHICH IS EXPANDING AND NOT A MINIMAL TO IR INJECTION. RISKS AND OPTIONS FULLY DISCUSSED CHEST CLEAR COR REGULAR RHYTHM, VITAL SIGNS STABLE ABDOMEN SOFT NONTENDER EXTREMITIES FULL PULSES PULSATILE HEMATOMA IN THE RIGHT GROIN Plan: OR CORRECTION OF PSEUDOANEURYSM RUPERTO 09/07/18 09:58 09/07/18 19:17 good pulses/ wound ok/ alert/ vs stable/ hct 34 Objective: Vital Signs Temp Pulse Resp BP Pulse Ox 36.8 C 60 16 122/56 H 97 09/07/18 13:30 09/07/18 16:30 09/07/18 15:00 09/07/18 16:30 09/07/18 13:01 Laboratory Results 09/07/18 06:10 09/07/18 17:48 09/06/18 09/07/18 09/08/18 05:59 05:59 05:59 Intake Total 2109 Output Total 50 Balance 2059 ICD10 Worksheet Patient Problems: Problems Problem Status Onset 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 - ICD10 Problem Qualifiers (1) Femoral artery pseudoaneurysm complicating cardiac catheterization
[2018-09-08] MEDS: ACETAMINOPHEN 325 MG TAB PO SCH ×3 (04:38→15:15)
[2018-09-08] MEDS: PANTOPRAZOLE SODIUM 40 MG TAB PO SCH (08:24)
[2018-09-08] MEDS: CARVEDILOL 25 MG TAB PO SCH ×2 (08:24→17:34)
[2018-09-08] MEDS: ATORVASTATIN CALCIUM 40 MG TAB PO SCH (08:24)
--- NOTE | 2018-09-08 08:41 | HOSPPROG ---
Hospitalist Progress Note Assessment/Plan: #Pseudoaneurysm: s/p repair POD#1 -schedule APAP, PRN low-dose oxycodone #Ventricular ectopy: Dr. Gibson to eval September. Ensure lytes at goal #PAF: Coreg. Restart AC when ok by surgery #HTN: hold JORGE-I with soft BP #Normocytic anemia: drop overnight from hematoma. Monitor closely #CAD: prior PAD PCI. No flow-limiting CAD on cath. #Moderate pulm HTN #Mild : FU outpatient Cards #Mild toxic encephalopathy: due to antiemetics #Deconditioning: PT #Diet: regular #DVT ppx: SCD #Disp: cont inpatient admission for telemetry, serial H/H and PT. Subjective: pain at groin site with activity, 05/21 Objective: Vital Signs Temp Pulse Resp BP Pulse Ox 37.1 C 64 14 104/40 L 94 09/08/18 07:24 09/08/18 07:24 09/08/18 07:24 09/08/18 07:24 09/08/18 07:24 Laboratory Results 09/08/18 04:36 09/08/18 04:36 09/07/18 09/08/18 09/09/18 05:59 05:59 05:59 Intake Total 2410 Output Total 50 Balance 2360 - Time Spent With Patient Time Spent with Patient: greater than 35 minutes Time Spent with Patient: Greater than 35 minutes spent on this patients care, greater than 50% of time spent counseling, educating, and coordinating care regarding the above mentioned plan. - Physical Exam Constitutional: no apparent distress Eyes: PERRL Ears, Nose, Mouth, Throat: moist mucous membranes Cardiovascular: regular rate and rhythym, No edema Respiratory: no respiratory distress Gastrointestinal: normoactive bowel sounds Musculoskeletal: other (right groin incision site with surrounding hematoma, soft. Mild oozing) Neurologic: AAOx3, CN II-XII Intact Psychiatric: interacting appropriately ICD10 Worksheet Patient Problems: Problems Problem Status Onset 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
[2018-09-08] MEDS ORDERED: LISINOPRIL 10 MG TAB PO SCH (09:00)
--- NOTE | 2018-09-08 12:13 | PDCARPN ---
Cardiology Progress Note Assessment/Plan: Assessment/plan: 72-year-old female with coronary disease status post LAD PCI in 2016; mild cardiomyopathy ejection fraction 45-50%, paroxysmal atrial fibrillation and frequent PVCs. She also has valvular disease with moderate mitral and tricuspid regurgitation and [id number] aortic regurgitation. Admitted on 09/06 with pseudoaneurysm as a complication of diagnostic catheterization. This required surgical repair because anatomy was not favorable for thrombin injection percutaneously. 1. Right femoral arterial pseudoaneurysm: Status post surgical repair. Appreciate Dr. Klein' assistance. Surrounding hematoma causing discomfort. Anticoagulation on hold. 2. Arrhythmia: PAF in sinus now. Ongoing frequent PVCs. Will have EP consultation in September. Continue Coreg. Ejection fraction normal to low mildly decreased. No heart failure. 3. Coronary disease: History of LAD PCI in 2015. Stent patent based on catheterization September 05. May be able to stop Plavix and continue with Pradaxa alone 1 stable to resume anticoagulation. 4. Valvular heart disease as detailed above and moderate pulmonary hypertension : Will need longitudinal outpatient follow-up. Valvular disease is not surgical at this time. 5. Anemia: This appears to be acute blood loss anemia related to groin hematoma. Being followed daily. Would like to see stabilization prior to discharge. 6. Hypertension: Well controlled here. Lisinopril on hold due to intermittent low blood pressures. 09/08/18 12:17 Subjective: Denies angina or dyspnea. She is having groin pain when standing. Required IV Dilaudid. Reviewed/Discussed With: family Objective: Vital Signs (8 Hrs) Temp Pulse Resp BP Pulse Ox 09/08/18 12:00 36.4 C 71 12 123/67 H 95 09/08/18 07:24 37.1 C 64 14 104/40 L 94 Intake/Output (24 Hrs) 09/07/18 09/08/18 09/09/18 05:59 05:59 05:59 Intake Total 2410 Output Total 50 Balance 2360 Intake: Oral (ml) 410 IV Intake (ml) 650 IV Infused (ml) 1350 Ns 1,000 ml @ 50 mls/hr 350 IV CONT PITA Rx#: [id number] Output: Estimated Blood Loss (ml) 50 Other: Weight 69.4 kg Intake Quantity Yes Sufficient Number of Voids 2 Bedpan 2 No acute distress. JVP less than 10. Regular rate and rhythm with frequent ectopy. Soft early systolic murmur left lower sternal border. Lungs clear to auscultation without wheeze rhonchi or rales Extremities are warm well perfused. Intact distal pulses on the right foot. Surgical site of repaired right groin pseudoaneurysm shows incision clean dry and intact. Moderate to large surrounding hematoma which the patient reports was present prior to surgery. Mild tenderness to palpation. Result Diagrams: 09/08/18 09:30 09/08/18 04:36 Telemetry: Sinus rhythm with frequent PVCs. Occasional ventricular triplets. Echocardiogram: BRETT reviewed: Normal LV systolic function. Moderate mitral regurgitation. Opqq-ih-[id number] aortic regurgitation. Moderate tricuspid regurgitation. ICD10 Worksheet Patient Problems: Problems Problem Status Onset 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
--- NOTE | 2018-09-08 12:18 | SOAPPROG ---
BE Progress Note Assessment/Plan: Assessment: s/p repair of pseudoaneurysm Doing well No signs of expanding hematoma May dc home from my perspective if stable May shower Inter dry in groin fold No 90 degree bend (slight slouch okay, stairs okay, limited walking okay) S: Pain controlled O: lying in bed incision cdi Ecchymosis on lateral thigh but no expanding hematoma Plan: 09/08/18 12:16 Objective: Vital Signs Temp Pulse Resp BP Pulse Ox 36.4 C 71 12 123/67 H 95 09/08/18 12:00 09/08/18 12:00 09/08/18 12:00 09/08/18 12:00 09/08/18 12:00 Laboratory Results 09/08/18 09:30 09/08/18 04:36 09/07/18 09/08/18 09/09/18 05:59 05:59 05:59 Intake Total 2410 Output Total 50 Balance 2360 ICD10 Worksheet Patient Problems: Problems Problem Status Onset 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
[2018-09-08] MEDS ORDERED: oxyCODONE IR 5 MG TAB PO PRN (12:29)
[2018-09-08] MEDS: ACETAMINOPHEN 500 MG TAB PO SCH ×2 (15:14→21:15)
[2018-09-09] MEDS: ACETAMINOPHEN 500 MG TAB PO SCH ×3 (06:22→22:25)
[2018-09-09] MEDS: PANTOPRAZOLE SODIUM 40 MG TAB PO SCH (08:25)
[2018-09-09] MEDS: ATORVASTATIN CALCIUM 40 MG TAB PO SCH (08:25)
[2018-09-09] MEDS: CARVEDILOL 25 MG TAB PO SCH ×2 (08:25→17:37)
--- NOTE | 2018-09-09 10:32 | SOAPPROG ---
BE Progress Note Assessment/Plan: Assessment: s/p repair of pseudoaneurysm No signs of expanding hematoma H/H dropped again. I agree with giving a unit of blood due to CAD, recent surgery and progressive decline. She is clinically better so will monitor May dc home from my perspective if stable May shower Inter dry in groin fold No 90 degree bend (slight slouch okay, stairs okay, limited walking okay) S: Pain improved today O:Sitting in chair eating pancakes incision clean with minor ooze. Ecchymosis on lateral thigh but no expanding hematoma. Softer and less painful today Plan: 09/08/18 12:16 09/09/18 10:30 Objective: Vital Signs Temp Pulse Resp BP Pulse Ox 36.6 C 64 17 140/58 H 96 09/09/18 08:00 09/09/18 08:00 09/09/18 08:00 09/09/18 08:00 09/09/18 08:00 Laboratory Results 09/09/18 03:46 09/08/18 04:36 09/08/18 09/09/18 09/10/18 05:59 05:59 05:59 Intake Total 2410 700 Output Total 50 1150 Balance 2360 -450 ICD10 Worksheet Patient Problems: Problems Problem Status Onset 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
--- NOTE | 2018-09-09 10:39 | PDCARPN ---
Cardiology Progress Note Assessment/Plan: Assessment/plan: 72-year-old female with coronary disease status post LAD PCI in 2016; mild cardiomyopathy ejection fraction 45-50%, paroxysmal atrial fibrillation and frequent PVCs. She also has valvular disease with moderate mitral and tricuspid regurgitation and [id number]-eg-[id number] aortic regurgitation. Admitted on 09/06 with pseudoaneurysm as a complication of diagnostic catheterization. This required surgical repair because anatomy was not favorable for thrombin injection percutaneously. 1. Right femoral arterial pseudoaneurysm: Status post surgical repair. Appreciate Dr. Klein' and Dr. Ortiz's assistance. hct dropped overnight. On exam, hematoma appears improved. She will be receiving one unit PRBCs today. Anticoagulation on hold. Restart Plavix once hematocrit in groin hematoma have stabilized. 2. Arrhythmia: PAF in sinus now. Ongoing frequent PVCs. Will have EP consultation in September. Continue Coreg. Ejection fraction normal to low mildly decreased. No heart failure. Restart Pradaxa once hematocrit and groin hematoma have stabilized. 3. Coronary disease: History of LAD PCI in 2015. Stent patent based on catheterization September 05. Continue beta-yin and statin. Plavix as per 1. 4. Valvular heart disease as detailed above and moderate pulmonary hypertension : Will need longitudinal outpatient follow-up. Valvular disease is not surgical at this time. 5. Anemia: This appears to be acute blood loss anemia related to groin hematoma. Being followed daily. Transfuse 1 unit today. No other source of bleeding. 6. Hypertension: Was hypotensive overnight, now normalized. Continue Coreg. 09/09/18 10:39 Subjective: Jerri reports improved groin pain. She was able to ambulate. No angina or dyspnea. Objective: Vital Signs (8 Hrs) Temp Pulse Resp BP Pulse Ox 09/09/18 08:00 36.6 C 64 17 140/58 H 96 09/09/18 03:59 36.5 C 66 16 84/36 L 97 Intake/Output (24 Hrs) 09/08/18 09/09/18 09/10/18 05:59 05:59 05:59 Intake Total 2410 700 Output Total 50 1150 Balance 2360 -450 Intake: Oral (ml) 410 700 IV Intake (ml) 650 IV Infused (ml) 1350 Ns 1,000 ml @ 50 mls/hr 350 IV CONT PITA Rx#: [id number] Output: Urine (ml) 1150 Bedside Commode 1150 Estimated Blood Loss (ml) 50 Other: Weight 69.4 kg 68.6 kg Intake Quantity Yes Sufficient Number of Voids 2 Bedpan 2 Bedside Commode 1 No acute distress. Sitting up in chair JVP less than 10. Frequent ectopy. 2/6 systolic ejection murmur at the base. Lungs clear to auscultation without wheeze rhonchi rales No lower extremity edema Right groin: Stable ecchymoses. Firmness of hematoma is improved. No active using. Result Diagrams: 09/09/18 03:46 09/08/18 04:36 Telemetry: Sinus rhythm with frequent PVCs ICD10 Worksheet Patient Problems: Problems Problem Status Onset 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
--- NOTE | 2018-09-09 14:31 | HOSPPROG ---
Hospitalist Progress Note Assessment/Plan: #Pseudoaneurysm: s/p repair POD#2 -schedule APAP, PRN low-dose oxycodone #Ventricular ectopy: Dr. Gibson to eval September. Ensure lytes at goal #PAF: Coreg. Restart AC when ok by surgery #HTN: hold JORGE-I, BB with soft BP #Normocytic anemia: H/H dropped overnight. Transfuse 1 unit #CAD: prior PAD PCI. No flow-limiting CAD on cath. Restart Plavix this week if H /H stable #Moderate pulm HTN #Mild : FU outpatient Cards #Mild toxic encephalopathy: due to antiemetics. Resolved #Deconditioning: PT #Diet: regular #DVT ppx: SCD #Disp: cont inpatient admission for telemetry, serial H/H and PT. DC tomorrow if H/H stable. Discussed with Dr. Chavez Subjective: mild oozing from surgical site. No back pain. Pain in groin improved with ice Objective: Vital Signs Temp Pulse Resp BP Pulse Ox 36.5 C 70 16 117/45 L 95 09/09/18 13:53 09/09/18 13:53 09/09/18 13:53 09/09/18 13:53 09/09/18 13:53 Laboratory Results 09/08/18 04:36 09/08/18 09/09/18 09/10/18 05:59 05:59 05:59 Intake Total 2410 700 Output Total 50 1150 Balance 2360 -450 - Time Spent With Patient Time Spent with Patient: greater than 35 minutes Time Spent with Patient: Greater than 35 minutes spent on this patients care, greater than 50% of time spent counseling, educating, and coordinating care regarding the above mentioned plan. - Physical Exam Constitutional: no apparent distress Eyes: PERRL Ears, Nose, Mouth, Throat: moist mucous membranes Cardiovascular: regular rate and rhythym Respiratory: no respiratory distress Gastrointestinal: normoactive bowel sounds Genitourinary: No goins in urethra Musculoskeletal: other (right groin hematoma, soft, less swollen. Mild oozing from surgial site) Neurologic: CN II-XII Intact Psychiatric: interacting appropriately ICD10 Worksheet Patient Problems: Problems Problem Status Onset 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
[2018-09-09] MEDS ORDERED: NS 1,000 ML IV SCH (19:30)
--- NOTE | 2018-09-09 23:04 | GOP ---
DATE OF OPERATION: 09/07/2018 SURGEON: Tello Klein MD UKE DRIVER: ELADIO Arreguin. ANESTHESIOLOGIST: Dr. Alberto. PREOPERATIVE DIAGNOSIS: Right femoral pseudoaneurysm. POSTOPERATIVE DIAGNOSIS: Right femoral pseudoaneurysm. PROCEDURE PERFORMED: Right groin exploration with evacuation and repair of pseudoaneurysm. FINDINGS: The patient was found to have a direct stick in the common femoral artery, which was only approximately 3 mm in size but with a moderate pulsatile pseudoaneurysm. DESCRIPTION OF PROCEDURE: The patient was taken to the operating room where she received satisfactory general endotracheal anesthesia by Dr. Alberto. She was placed in the supine position and prepped and draped in the usual sterile fashion. A vertical incision was made in the right groin. Dissection was carried down to the inguinal ligament. This dissection extended above the pseudoaneurysm and the common femoral artery was dissected free at the level of the inguinal ligament and circled with a vessel loop for proximal control. Dissection extended down below the pseudoaneurysm, but the tissue distortion was too great and it was difficult to find the superficial femoral artery with entering the pseudoaneurysm. This was eventually done and the clot was evacuated and finger control was obtained of the bleeding site. Proximal control was established briefly. The puncture site was closed with 4-0 Prolene mattress sutures. Flow was quickly re-established down the leg. She maintained good pulses in her feet and good hemostasis of the pseudoaneurysm. The wound was irrigated. Old clot was removed. The wound was then closed with running 2-0 Vicryl for the fascia, 3-0 Vicryl for the subcutaneous tissue, and skin alexei for the skin. The wound was infiltrated with 0.5% Marcaine. She tolerated the procedure well, was taken to the recovery room in good condition. /[id number]/MODL MTDD
[2018-09-10] MEDS: ONDANSETRON 4 MG/2 ML VIAL IVP PRN (03:58)
[2018-09-10] MEDS: ATORVASTATIN CALCIUM 40 MG TAB PO SCH (09:26)
[2018-09-10] MEDS: PANTOPRAZOLE SODIUM 40 MG TAB PO SCH (09:26)
[2018-09-10] MEDS: ACETAMINOPHEN 500 MG TAB PO SCH (09:28)
--- NOTE | 2018-09-10 10:33 | PDCARPN ---
Cardiology Progress Note Chief Complaint: Patient is doing well today. No cardiovascular complaints. Minimal discomfort to the right groin Assessment/Plan: Assessment: Patient is a 72 y/o female with history of CAD s/p PCI to the LAD (2016), CHF ( EF with mild suppression in the past), pHTN, pAF (on Pradaxa with [id number] score of 5 for age, HTN, CAD history, CHF, and sex), HTN, HLP, and GERD, who presented on 09-07-18, two days after BRETT (low normal LVEF with severe biatrial enlargement, mild AI, mild MR, and mod TR) and cardiac cath (right, left, and cors, which revealed no in stent stenosis to the mid LAD, ongoing suppression of LVEF (45-50%), and moderate pulmonary hypertension) with right groin pains. Ultrasound with a large right common femoral pseudoaneurysm, amenable to surgical intervention. On September 07, 2018, surgery was performed without complication. One unit of PRBC was transfused POD#2 and H/H have been followed. Hemoglobin/Haematocrit (7.2/22.5) increased after the transfusion ( 9.6/29). Numbers appear to be stable today. No active cardiovascular complaints of chest pains or pressure. No PND or orthopnea have been noted. Minor right groin tenderness has been noted. No atrial fibrillation has been noted with this hospital stay, but frequent PVCs continue to be noted (this arrhythmia was noted prior to this admission, and there are documentation suggesting pending EP consultation in the outpatient setting). was present at bedside with the patient today. Plan: (1) Resume antihypertensive therapies given the elevated blood pressures noted - Coreg and Lisinopril (2) Continue statins for HLP and maintain annual assessment of cholesterol and LFTs (3) Continue hold on Plavix (stent placement was in 2015), with plans to discuss resumption of therapy during outpatient cardiology follow up (4) Discussion with surgery about resumption of anticoagulants - plavix could be held for longer given last PCI was in 2016 - pradaxa could be resumed given pAF history with [id number] score of 5 (and reversibility of the agent) (5) Would arrange for patient to be seen in outpatient cardiology (Dr. Juni Leigh ) this week. Further discussion/work to have the patient seen by EP given the heavy PVC burden noted Subjective: No active cardiovascular complaints Reviewed/Discussed With: family, hospitalist Objective: Vital Signs (8 Hrs) Temp Pulse Resp BP Pulse Ox 09/10/18 07:29 36.9 C 84 18 124/59 H 93 09/10/18 04:01 167/59 H 09/10/18 03:48 36.6 C 74 18 93 Intake/Output (24 Hrs) 09/09/18 09/10/18 09/11/18 05:59 05:59 05:59 Intake Total 700 930 Output Total 1150 1475 250 Balance -450 -545 -250 Intake: Oral (ml) 700 100 IV Infused (ml) 830 Ns 1,000 ml @ 75 mls/hr 830 IV CONT PITA Rx#: [id number] Output: Urine (ml) 1150 1475 250 Bedside Commode 1150 Toilet 1475 250 Other: Weight 68.6 kg 67.9 kg Number of Voids Bedside Commode 1 Toilet 1 Result Diagrams: 09/10/18 04:06 09/10/18 04:06 EKG: normal sinus rhythm with frequent PVCs Telemetry: normal sinus rhythm with PVCs - Physical Exam Constitutional: WDWN, healthy appearing, no apparent distress Eyes: PERRL, EOMI Ears, Nose, Mouth, Throat: moist mucous membranes Cardiovascular: regular rate and rhythm, systolic murmur, jugular vein distention, pulses symmetric bilat, No diastolic murmur Peripheral Pulses: 2+: dorsalis-pedis (R), dorsalis-pedis (L) Respiratory: clear to auscultate bilat, no crackles, no wheezes Gastrointestinal: normoactive bowel sounds Skin: no rashes, no edema Musculoskeletal: no muscular tenderness Neurologic: AAOx3, CN II-XII grossly intact ICD10 Worksheet Patient Problems: Problems Problem Status Onset 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
--- NOTE | 2018-09-10 10:59 | SOAPPROG ---
BE Progress Note Assessment/Plan: Assessment: 72 y/o F s/p open repair of right femoral pseudoaneurysm S: Doing well overall. Pain much improved. Denies pain down RLE. O: Alert Afebrile H&H stable after 1u prbc yesterday No increased WOB R groin: Incision with alexei intact. Small amount of serosang drainage. Inter dry in place. Surrounding area soft and only mildly ttp, ecchymosis stable Plan: Ok to go from surgery standpoint. Follow up with Dr. Klein in one week. 09/10/18 10:57 Objective: Vital Signs Temp Pulse Resp BP Pulse Ox 36.9 C 84 18 124/59 H 93 09/10/18 07:29 09/10/18 07:29 09/10/18 07:29 09/10/18 07:29 09/10/18 07:29 Laboratory Results 09/10/18 04:06 09/10/18 04:06 09/09/18 09/10/18 09/11/18 05:59 05:59 05:59 Intake Total 700 930 Output Total 4196 1475 250 Balance -450 -545 -250 ICD10 Worksheet Patient Problems: Problems Problem Status Onset 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
--- NOTE | 2018-09-10 11:48 | ASMTLACE ---
[place] Length of stay for Answers: 3 days current admission Acuity / Level of Answers: Yes Care: Did the patient have an inpatient admission? Comorbidities - select Answers: Coronary Artery Disease all that apply # of Emergency department Answers: 1-2 visits in the last 6 months Score: 9 Date Signed: 09/10/2018 11:47 AM Electronically Signed By:Sonali Cobos RN
--- NOTE | 2018-09-10 11:50 | ASMTDCNOTE ---
Case Management Discharge Discharge Order Complete? Answers: Yes Patient to Obtain Answers: Independently Medications Transportation Arranged Answers: Family/Friends Family Notified Answers: Yes Discharge Comments Notes: Patient discharged home with . She will follow up with both surgery and Cardiology next week. No other d.c needs identified. Date Signed: 09/10/2018 11:49 AM Electronically Signed By:Sonali Cobos RN
[2018-09-10 11:54] VITALS: BP 125/65
[2018-09-10] MEDS ORDERED: CARVEDILOL 25 MG TAB PO SCH (13:00)
[2018-09-10] MEDS: CARVEDILOL 25 MG TAB PO SCH (13:17)
--- NOTE | 2018-09-10 14:17 | GDS ---
DISCHARGE DIAGNOSES: 1. Right femoral pseudoaneurysm. 2. Acute blood loss anemia. 3. Atrial fibrillation, CHADS2-VASc score 5. 4. Hypertension. 5. Coronary artery disease with percutaneous coronary intervention to the left anterior descending in 2016. 6. Systolic heart failure. 7. Pulmonary hypertension. 8. Gastroesophageal reflux disease. 9. Mild toxic encephalopathy. 10. Ventricular ectopy. CONSULTATIONS: 1. Cardiology. 2. Surgery. PROCEDURES: 09/07/2018, right groin exploration with evacuation and repair of pseudoaneurysm. HISTORY OF PRESENT ILLNESS: A pleasant 72-year-old female with CAD, status post stent to LAD in 2016, systolic heart failure, severe MR, who underwent left and right heart catheterization 09/05 for progressive valvular disease. She has been having increasing episodes of PVCs. Cath did not find any flow- limiting CAD and LAD stent was patent. She was discharged 09/06 without issue. She returned with increased swelling and pain in her right groin. She denies any numbness or tingling in her leg. She denies chest pain or dizziness. US in ER showed right femoral artery pseudoaneurysm, not amendable to IR repair, thus Surgery consulted. HOSPITAL COURSE BY PROBLEM: 1. Pseudoaneurysm right femoral artery: s/o surgical repair. 2. Acute blood loss anemia: due to groin hematoma. Transfused 1 unit RBC; H/H today 06/09. CBC to be checked Monday morning and she will call Cardiology with results to determine if can restart Plavix. 3. Paroxysmal atrial fibrillation: High risk, with CHADS2-VASc 5. I discussed the case with Dr. Gill and Dr. Ortiz with Surgery and agree ok to restart Pradaxa. She was provided strict return precautions. 4. CAD: recent cath did not show flow-limiting disease and LAD stent was patent. FU with Dr. Leigh for timing to restart Plavix. Continue statin, Coreg. 5. Hypovolemic hyponatremia: improved with fluids 6. Mild compensated systolic congestive heart failure: EF is 45%. Continue Coreg. 7. Hypertension: Resume home medications. Zestril was held initially due to soft blood pressures. 8. GERD: Prevacid. 9. Moderate pulmonary hypertension: Is followed closely by Cardiology. 10. Mild toxic encephalopathy: Likely due to anesthesia and antiemetics. This is resolved. 11. Ventricular ectopic activity: appt with Dr. Gibson in September. DISPOSITION: Patient is stable for discharge home with her . MEDICATIONS: Resume Pradaxa 150 mg b.i.d. Hold Plavix. FOLLOW UP: 1. Dr. Klein. 2. Dr. Leigh. 3. CBC on 09/12/2018, and patient to call Cardiology with the results. PHYSICAL EXAMINATION: VITAL SIGNS: Today, temperature 36.6, blood pressure 125 /65, heart rate in the 90s, respirations 20, 95% on room air. GENERAL: Well- appearing, smiling in no acute distress. HEENT: PERRLA. Moist mucous membranes. CV: Regular rhythm, plus 3/6 murmur. MUSCULOSKELETAL: Right groin incision site stapled with no significant bleeding. Large hematoma, nontender. Swelling is improved. NEURO: 2 through 12 intact. PSYCH: Alert and oriented x3. Time spent on discharge greater than 45 minutes coordinating with Cardiology, Surgery for medication plan. /[id number]/MODL MTDD
--- NOTE | 2018-09-19 22:31 | PQFORM ---
PHYSICIAN QUERY FORM Needs Your Response This query form is being sent to you to assure this patient record is coded properly. Please respond to the question below: TOASTER ELEMENT REPAIRER QUESTION: Dr Hilton Would you consider this patients pseudoaneurysm to be a complication of the patients recent cardiac cath ?? x ___ yes ___ no ___ other (please specify __) ___ unable to determine Thank You Gladys BROWN Director Fundraising INSTRUCTIONS FOR RESPONSE: Answer question by clicking on the "Edit Document" button. Move cursor to area below the stars. When complete, hit "Save." Click on the "Sign" button, then click "Sign" again. Type in your PIN and hit "Enter." MTDD
== END 2018-09-10 16:02 | disposition home or self-care (01) | DRG 907 ==
LOC: OBSVTOIN 09-07 01:34 → F2W 09-07 13:28
PROVIDERS: ADMIT Family Medicine; ATTEND Family Medicine
PROC: 04QK0ZZ Repair Right Femoral Artery, Open Approach (ICD-10-PCS; principal; 2018-09-07 10:45)
PROC: 04CK0ZZ Extirpation of Matter from Right Femoral Artery, Open Approach (ICD-10-PCS; principal; 2018-09-07 10:45)
DX: I97.630 Postprocedural hematoma of a circulatory system organ or structure following a cardiac catheterization (principal); I72.4 Aneurysm of artery of lower extremity; I97.89 Other postprocedural complications and disorders of the circulatory system, not elsewhere classified; G92 Toxic encephalopathy; T45.0X5A Adverse effect of antiallergic and antiemetic drugs, initial encounter; D62 Acute posthemorrhagic anemia; I49.3 Ventricular premature depolarization; I11.9 Hypertensive heart disease without heart failure; I50.20 Unspecified systolic (congestive) heart failure; E87.1 Hypo-osmolality and hyponatremia; I48.0 Paroxysmal atrial fibrillation; I25.10 Atherosclerotic heart disease of native coronary artery without angina pectoris; E78.5 Hyperlipidemia, unspecified; K21.9 Gastro-esophageal reflux disease without esophagitis; I34.0 Nonrheumatic mitral (valve) insufficiency; I27.20 Pulmonary hypertension, unspecified; Z79.01 Long term (current) use of anticoagulants; Z95.5 Presence of coronary angioplasty implant and graft
CPT/HCPCS: 97161-GP; J0690; J1170; J1644; J2250; J2405; J2550; J2704; J2710; J2720; J3010; P9016

== ENCOUNTER 2018-10-15 09:23 | Inpatient (IN) | payer OTHER ==
[2018-10-15] MEDS ORDERED: ACETAMINOPHEN 325 MG TAB PO PRN (12:02)
[2018-10-15 12:51] LABS: PLATELET COUNT 227 10^3/uL (150-400)
[2018-10-15 12:56] LABS: INR 1.6 (0.83-1.16); PROTIME(PATIENT) 19.2 SEC (12.0-15.0)
--- NOTE | 2018-10-15 13:45 | PDCARPN ---
Cardiology Progress Note Chief Complaint: NSVT Assessment/Plan: Assessment: Admit for Sotalol loading for asymptomatic NSVT. Her EKG shows RSR with PVC' s. She does have a history of Atrial Fibrillation and is on Pradaxa. She had a Cardiac Angiogram 5 weeks ago , developed a hematoma, that required surgery. Hemoglobin today is 11.0. Right groin site well healed with no ecchymosis or hematoma. She feels well today with no SOB, chest pain, or dizziness. Plan to have her PCP evaluate further for low Hbg. She reports that she typically runs on low side. Dr Gibson reviewed Lab, and EKG. He will have her start on Sotalol 120 mg BID, first dose at 6pm this evening. Plan was discussed with she and her . They are in agreement with plan. Plan: Initiate Sotalol 120 mg at 6 pm this evening. 10/15/18 13:37 Subjective: I feel good, and understand the plan. Reviewed/Discussed With: family, multidisciplinary team, other (Dr Gibson) Objective: Vital Signs (8 Hrs) Temp Pulse Resp BP Pulse Ox 10/15/18 11:52 36.4 C 63 16 144/84 H 96 Intake/Output (24 Hrs) 10/14/18 10/15/18 10/16/18 05:59 05:59 05:59 Other: Weight 65.5 kg Result Diagrams: 10/15/18 12:25 10/15/18 12:25 - Physical Exam Constitutional: no apparent distress Cardiovascular: regular rate and rhythm, systolic murmur Peripheral Pulses: 2+: carotid (R), carotid (L), femoral (R), femoral (L), dorsalis-pedis (R), dorsalis-pedis (L) Respiratory: clear to auscultate bilat, no crackles, no wheezes Skin: warm, no edema Neurologic: AAOx3 Psychiatric: cooperative, interactive ICD10 Worksheet Patient Problems: Problems Problem Status Onset 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
--- NOTE | 2018-10-15 13:45 | CPEKG ---
Test Reason : OPEN Blood Pressure : / mmHG Vent. Rate : 059 BPM Atrial Rate : 060 BPM P-R Int : 186 ms QRS Dur : 099 ms QT Int : 442 ms P-R-T Axes : 055 020 085 degrees QTc Int : 438 ms Sinus rhythm Ventricular trigeminy Probable left atrial enlargement Confirmed by Perry Gill ([id number]) on 10/15/2018 1:44:52 PM Referred By: Sudeep Gibson Confirmed By:Perry Gill
--- NOTE | 2018-10-15 15:47 | PDMN ---
Medical Necessity [place] [facility] [place] : NSVT, PAF - sotalol loading
[2018-10-15] MEDS: SOTALOL HCL 80 MG TAB PO SCH (18:05)
[2018-10-15] MEDS: DABIGATRAN ETEXILATE MESYL 150 MG CAP PO SCH (22:16)
[2018-10-16 05:14] LABS: INR 1.25 (0.83-1.16); PROTIME(PATIENT) 15.9 SEC (12.0-15.0)
[2018-10-16] MEDS: DABIGATRAN ETEXILATE MESYL 150 MG CAP PO SCH ×2 (09:10→21:00)
[2018-10-16] MEDS: ATORVASTATIN CALCIUM 40 MG TAB PO SCH (09:10)
[2018-10-16] MEDS: LISINOPRIL 10 MG TAB PO SCH (09:10)
[2018-10-16] MEDS: PANTOPRAZOLE SODIUM 40 MG TAB PO SCH (09:10)
[2018-10-16] MEDS: SOTALOL HCL 80 MG TAB PO SCH ×2 (09:11→21:00)
--- NOTE | 2018-10-16 10:22 | PDCARPN ---
Cardiology Progress Note Chief Complaint: High-frequency PVCs, NSVT Assessment/Plan: Assessment: 1. Nonsustained ventricular tachycardia: NSVT noted at peak exertion during recent ETT, this was asymptomatic. Nonobstructive CAD by coronary angiography. Sotalol 120mg BID started yesterday, QTc 440ms 2 hours post-administration last night. BMP WNL. 2. High-frequency PVCs: frequently couplets and triplets on telemetry overnight , asymptomatic 3. Nonobstructive CAD 4. Atrial fibrillation, paroxysmal: 60 minutes of AF notes on a Holter monitor in 2016. She is anticoagulated with Pradaxa. 5. Cardiomyopathy: Systolic function mildly reduced as noted during recent C Plan: 1. Continue Sotalol 120mg BID with ECG 2-hours post-administration 2. OK to resume Pradaxa twice daily dosing (patient has been taking Pradaxa once daily following repair of her pseudoaneurysm post-cath). 10/16/18 10:17 Subjective: No issues overnight. No lightheadedness, dizziness, or fatigue. Reviewed/Discussed With: multidisciplinary team Time Spent with Patient: greater than 25 minutes Time Spent with Patient: Greater than 25 minutes spent on this patients care, greater than 50% of time spent counseling, educating, and coordinating care regarding the above mentioned plan. Objective: Vital Signs (8 Hrs) Temp Pulse Resp BP Pulse Ox 10/16/18 08:00 36.7 C 62 16 149/59 H 93 10/16/18 04:00 37.1 C 88 16 145/75 H 94 Intake/Output (24 Hrs) 10/15/18 10/16/18 10/17/18 05:59 05:59 05:59 Intake Total 1290 Balance 1290 Intake: Oral (ml) 1290 Other: Weight 65.5 kg Number of Voids Toilet 4 Result Diagrams: 10/15/18 12:25 10/16/18 03:55 EKG: ECG 10/15 at 1999 demonstrated QTc 440ms (auto calculation measuring 499ms is inaccurate) Telemetry: Frequent PVCs, couplets, and triplets - Physical Exam Constitutional: WDWN, healthy appearing, no apparent distress Eyes: PERRL, EOMI, anicteric sclera Ears, Nose, Mouth, Throat: moist mucous membranes, no oral ulcers, no thrush Cardiovascular: no murmurs, no rubs, no gallops, irregularly irregular Peripheral Pulses: 2+: dorsalis-pedis (R), dorsalis-pedis (L) Respiratory: clear to auscultate bilat, no crackles, no wheezes Gastrointestinal: normoactive bowel sounds, no tenderness, no masses Skin: no rashes, no abrasions, no ulcers, warm, no edema Neurologic: AAOx3, CN II-XII grossly intact Psychiatric: cooperative, interactive, following commands, not anxious ICD10 Worksheet Patient Problems: Problems Problem Status Onset 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
--- NOTE | 2018-10-16 14:45 | ASMTCMCOM ---
CM Note CM Note Notes: Pt is a 73 y/o female admitted for sotalol administration. Pt will most likely d/c independent when medically stable. No therapies ordered at this time. CM available for changes. Plan: Independent Date Signed: 10/16/2018 02:44 PM Electronically Signed By:IVANIA Serrano
[2018-10-17] MEDS: LISINOPRIL 10 MG TAB PO SCH (08:25)
[2018-10-17] MEDS: SOTALOL HCL 80 MG TAB PO SCH (08:25)
[2018-10-17] MEDS: DABIGATRAN ETEXILATE MESYL 150 MG CAP PO SCH (08:25)
[2018-10-17] MEDS: PANTOPRAZOLE SODIUM 40 MG TAB PO SCH (08:25)
[2018-10-17] MEDS: ATORVASTATIN CALCIUM 40 MG TAB PO SCH (08:25)
--- NOTE | 2018-10-17 08:54 | CPEKG ---
Test Reason : OPEN Blood Pressure : / mmHG Vent. Rate : 077 BPM Atrial Rate : 060 BPM P-R Int : 189 ms QRS Dur : 091 ms QT Int : 433 ms P-R-T Axes : 045 002 089 degrees QTc Int : 491 ms Sinus rhythm Multiform ventricular premature complexes Left atrial enlargement Anteroseptal infarct, old Slight drop in the QTc from prior Confirmed by Perry Gill ([id number]) on 10/17/2018 8:54:30 AM Referred By: Sudeep Gibson Confirmed By:Perry Gill
--- NOTE | 2018-10-17 08:54 | CPEKG ---
Test Reason : OPEN Blood Pressure : / mmHG Vent. Rate : 083 BPM Atrial Rate : 059 BPM P-R Int : 184 ms QRS Dur : 100 ms QT Int : 424 ms P-R-T Axes : 046 004 096 degrees QTc Int : 499 ms Sinus rhythm Paired ventricular premature complexes Probable left atrial enlargement Consider anterior infarct QTc has prolonged Confirmed by Perry Gill ([id number]) on 10/17/2018 8:54:02 AM Referred By: Sudeep Gibson Confirmed By:Perry Gill
--- NOTE | 2018-10-17 08:55 | CPEKG ---
Test Reason : OPEN Blood Pressure : / mmHG Vent. Rate : 056 BPM Atrial Rate : 057 BPM P-R Int : 200 ms QRS Dur : 100 ms QT Int : 456 ms P-R-T Axes : 049 029 101 degrees QTc Int : 441 ms Sinus rhythm Ventricular bigeminy Probable left atrial enlargement Confirmed by Perry Gill ([id number]) on 10/17/2018 8:54:47 AM Referred By: Sudeep Gibson Confirmed By:Perry Gill
[2018-10-17 12:17] VITALS: BP 121/74
--- NOTE | 2018-10-17 17:45 | GDS ---
[f rep st] DISCHARGE SUMMARY SUPERVISING PUBLIC FINANCE SPECIALIST: Sudeep Gibson MD ADMISSION DIAGNOSES: 1. Nonsustained ventricular tachycardia. 2. Frequent premature ventricular contractions. 3. Nonobstructive coronary artery disease. DISCHARGE DIAGNOSES: 1. Nonsustained ventricular tachycardia status post attempted sotalol loading 2. High frequency premature ventricular contractions status post attempted sotalol loading. 3. Nonobstructive coronary artery disease. PROCEDURES PERFORMED DURING HOSPITALIZATION: Electrocardiogram. HOSPITAL COURSE: Patient presented 10/15/2018, for sotalol loading in the setting of very high frequency PVCs with nonsustained ventricular tachycardia noted at peak exertion during her recent treadmill stress test. She started sotalol 120 mg twice daily on October 15. Post administration ECG demonstrated stable QTc less than 500 msec. She maintained a stable QTc less than 500 msec for the duration of her hospitalization and 4 doses of sotalol. However, she continued to have very high frequency PVCs with ventricular bigeminy and trigeminy throughout her hospitalization. There was no notable benefit from her sotalol loading. Given that her PVCs are asymptomatic and given the fact that her PVC burden was not improved with sotalol, we ultimately decided to discontinue this medication on October 17 and she will be discharged in stable condition. PHYSICAL EXAMINATION: GENERAL: She is alert and oriented x4. No apparent distress. VITAL SIGNS: Blood pressure 121/74, heart rate 63, respiratory rate 18, SpO2 95% on room air. Temp 36.5. RESPIRATORY: Lungs are clear to auscultation without adventitious breath sounds. CARDIAC: Normal S1, S2, no S3 or S4. Rhythm is irregular. ABDOMEN: Normoactive bowel sounds times all 4 quadrants. Soft, no masses, no tenderness. SKIN: [place], warm, dry, without cyanosis, clubbing, or peripheral edema. LABORATORY STUDIES: Drawn today, magnesium and potassium are within normal limits. CBC and BMP have been within normal limits throughout her hospitalization. PROCEDURES: ECG today demonstrates normal sinus rhythm with bigeminal PVCs. DISCHARGE DISPOSITION: Patient will be discharged home in stable condition. She is not under any activity restrictions. DISCHARGE MEDICATIONS: Please see discharge medication reconciliation sheet for full details. Please note, the patient has been restarted on her home dose of Coreg. We have discontinued her sotalol at this time. DISCHARGE INSTRUCTIONS: Patient will be discharged home in stable condition. She will follow up in clinic with Dr. Gibson in 2 weeks. She will contact our clinic if she experiences any new or concerning symptoms prior to this visit. At that visit, we will consider watchful waiting versus antiarrhythmic therapy with amiodarone versus PVC ablation for LVOT PVCs. Time spent on discharge: Greater than 30 minutes /[id number]/MODL MTDD
--- NOTE | 2018-10-22 10:02 | CPEKG ---
Test Reason : OPEN Blood Pressure : / mmHG Vent. Rate : 084 BPM Atrial Rate : 029 BPM P-R Int : 186 ms QRS Dur : 091 ms QT Int : 461 ms P-R-T Axes : 048 -03 119 degrees QTc Int : 546 ms Sinus rhythm Ventricular bigeminy Confirmed by Sudeep Gibson ([id number]) on 10/22/2018 10:02:33 AM Referred By: Sudeep Gibson Confirmed By:Sudeep Gibson
== END 2018-10-17 15:44 | disposition home or self-care (01) | DRG 310 ==
LOC: F2W 11:26
PROVIDERS: ADMIT Internal Medicine Cardiovascular Disease; ATTEND Internal Medicine Cardiovascular Disease
DX: I47.2 Ventricular tachycardia (principal); I49.3 Ventricular premature depolarization; I25.10 Atherosclerotic heart disease of native coronary artery without angina pectoris; I10 Essential (primary) hypertension; I08.0 Rheumatic disorders of both mitral and aortic valves; I25.5 Ischemic cardiomyopathy; I48.0 Paroxysmal atrial fibrillation; Z95.5 Presence of coronary angioplasty implant and graft; Z79.01 Long term (current) use of anticoagulants

== ENCOUNTER → 2018-12-07 | Outpatient (CLI) | payer OTHER | LOC: FIMAGING 10:38 | PROVIDERS: ATTEND Internal Medicine | DX: Z12.31 Encounter for screening mammogram for malignant neoplasm of breast (principal); Z80.3 Family history of malignant neoplasm of breast ==